=== PATIENT | female | born 1955 | race Caucasian/White ===

== ENCOUNTER 2016-09-04 16:13 | Observation (INO) | payer OTHER ==
[~2016-09-04] VITALS: Ht 162.6 cm; Wt 85.1 kg
[~2016-09-04 16:13] MED LIST: B-COTAB18 PO; CHOL1TAB42 PO; CLR10 PO; COEN1CAP37 PO; Calcium Citrate PO; GLIM2TAB2 PO; LPT/20 PO; METF-384 PO
[2016-09-04] MEDS ORDERED: ASPIRIN 324 MG CHEW PO STA (16:34)
[2016-09-04 16:50] LABS: BASO % 0.2 %; BASO ABS # 0.02 K/uL (0-0.2); COMPLETE YES; EOS % 2.2 %; IG% 0.2 %; MEAN CELL VOLUME 87.3 fL (80-100); MEAN CORPUSCULAR HGB CONC 34.3 g/dl (32-36); MEAN PLATELET VOLUME 10.1 fL (7.4-10.4); MONO % 6.8 %; NEUT % 51.6 %; PLATELET COUNT 307 K/uL (130-400); RED BLOOD COUNT 5.04 M/uL (4.2-5.4); WHITE BLOOD COUNT 8.72 K/uL (4.8-10.8)
--- NOTE | 2016-09-04 17:05 | DIAGNOSTIC IMAGING REPORT ---
CHEST ONE VIEW PORTABLE CLINICAL HISTORY: Chest pain. COMPARISON STUDY: Chest radiograph July 29, 2011. FINDINGS: Lung volumes are normal. There is no consolidation or evidence of pulmonary edema. Cardiac size is normal. Mediastinal contours are normal. The appearance of the chest is unchanged. IMPRESSION: No acute cardiopulmonary findings. Electronically signed by: Rolando Cr M.D. 09/04/2016 5:03 PM Dictated Date/Time: 09/04/2016 5:03 PM
[2016-09-04] MEDS ORDERED: GLIM4TAB2 PO (17:11)
[2016-09-04 17:40] LABS: PARTIAL THROMBOPLASTIN RATIO 1.1; PROTHROMBIN TIME (PATIENT) 10.4 SECONDS (9.0-12.0)
[2016-09-04 17:43] LABS: BLOOD UREA NITROGEN 12 mg/dl (7-18); BUN/CREATININE RATIO 15.8 (10-20); CALCIUM 9.5 mg/dl (8.5-10.1); CARBON DIOXIDE 25 mmol/L (21-32); CHLORIDE 101 mmol/L (98-107); CREATININE 0.78 mg/dl (0.60-1.20); GLUCOSE 284 mg/dl (70-99); SODIUM 137 mmol/L (136-145)
[2016-09-04] MEDS ORDERED: NITROGLYCERIN OINT 2% 1GM PACKET EXT ONE (18:15)
[2016-09-04] MEDS ORDERED: ONDANSETRON INJ 2 MG/ML 2 ML VIAL IV PRN (19:30)
[2016-09-04] MEDS ORDERED: GLUCOSE 10 TABS/TUBE PO PRN (19:30)
[2016-09-04] MEDS ORDERED: GLUCAGON FOR INJ 1 MG VIAL SQ PRN (19:30)
[2016-09-04] MEDS ORDERED: ACETAMINOPHEN 325 MG TAB PO PRN (19:30)
[2016-09-04] MEDS ORDERED: DEXTROSE 50% 50 ML SYR IV PRN (19:30)
[2016-09-04] MEDS ORDERED: GLUCOSE 40% GEL 15 GM TUBE PO PRN (19:30)
[2016-09-04] MEDS ORDERED: IV FLUIDS COMPLETED PRN (20:15)
[2016-09-04 20:30] VITALS: BP 152/83; PULSE 71; TEMP 36.6; O2SAT 96; Ht 162.6 cm; Wt 85.1 kg
--- NOTE | 2016-09-04 20:30 | History and Physical ---
History & Physical Date & Time of Service: Sep 04, 2016 at 19:23 Chief Complaint: Chest Discomfort Primary Care Physician: Traci Arzate M.D. History of Present Illness Source: patient, spouse ( at bedside), clinic records, hospital records This is a 60 year old female with PMH of DM type 2 on oral meds, uncontrolled in the past, hyperlipidemia, bicuspid aortic valve, severe aortic stenosis, history of Guillain-Yelm syndrome at age 22, who presented to the ED with intermittent chest pain. Patient follows with Dr. Arzate for primary care and Dr. Collins for cardiology. Patient states yesterday and today she has intermittent chest vague discomfort lasting 10 minutes which is now resolved. She describes discomfort as "it doesn't feel right". It occurred today while sitting watching a movie. Not related to exertion. No associated diaphoresis, dizziness, IVEY, vision change, SOB, OJEDA, N/V, reflux, palpitations, calf pain, edema, numbness or weakness of extremities. Patient reports being very anxious lately due to her father being recently hospitalized here at [facility] and underwent 2 coronary artery stents. He is now discharged to home. Patient's blood pressure is elevated up to 190s/110s in the ER. She denies prior history of HTN or being on BP medications. Last time her BP was taken was in clinic in June - at that time BP was 138/82. Pt states blood sugars run 150-250 at home. Patient refused aspirin in the ER- states she was told not to take it at [place] when she had Guillain-Yelm syndrome at age 22. She states she does not tolerate medications well. When I entered the room she was having nitro- paste placed, stated she was concerned it would cause a reaction. I informed her it may cause a headache and it was being given to dilate her blood vessels to improve perfusion to her heart and decrease the blood pressure. Immediately when nitro was placed patient became tearful and stated her lips were tingling, her nose "feels weird", her face was burning, and she felt she was "getting too much air". I removed the nitro paste and she reported resolution of symptoms. She states she had similar reactions in the past with Tylenol and ibuprofen. Patient declines medication for anxiety and also declines antihypertensive medication. Past Medical/Surgical History Medical Problems: (1) Aortic valve stenosis Permanent Comment: echo 06/15/2016- EF 60-64%, bicuspid aortic valve, moderately calcified aortic valve, severe Status: Chronic (2) Bicuspid aortic valve Status: Chronic (3) DM type 2 (diabetes mellitus, type 2) Status: Chronic (4) Guillain-Yelm syndrome Permanent Comment: age 22 Status: Chronic (5) Hyperlipidemia Status: Chronic (6) Obesity (BMI 30-39.9) Status: Chronic Surgical Problems: (1) H/O tubal ligation Status: Chronic Family History Heart disease FATHER (2 coronary artery stents) Social History Smoking Status: Never Smoker Alcohol Use: none Marital Status: Housing status: lives with family Occupational Status: employed Immunizations History of Influenza Vaccine: No History of Tetanus Vaccine?: Unknown History of Pneumococcal: No History of Hepatitis B Vaccine: No Allergies Coded Allergies: Lisinopril (Verified Allergy, Unknown, Edema face, lips, tongue., 09/04/16) Reported by PT/[facility] record. Home Medications Scheduled Atorvastatin (Atorvastatin Calcium), 20 MG PO HS B-Complex Vitamins (Vitamin B Complex), 1 TAB PO DAILY Cholecalciferol (Vitamin D), 5,000 INTER.UNIT PO DAILY Coenzyme Q10 (Ubidecarenone) (Co Q-10), 200 MG PO DAILY Glimepiride (Glimepiride), 1 TAB PO BID Loratadine (Claritin), 10 MG PO DAILY Metformin Hcl (Glucophage), 1,000 MG PO BID [Calcium Citrate], 1 CAP PO DAILY Review of Systems Ten point review of systems performed with pertinent positives and negatives noted in HPI. Physical Exam Vital Signs Date Time Temp Pulse Resp B/P Pulse Ox O2 Delivery O2 Flow Rate FiO2 09/04/16 19:21 85 20 190/105 95 Room Air 09/04/16 18:17 90 20 192/115 97 Room Air 09/04/16 16:26 92 09/04/16 16:25 98 Room Air 09/04/16 16:21 98 Room Air 09/04/16 16:20 98 Room Air 09/04/16 16:16 36.7 91 18 189/74 97 Room Air General Appearance: + obese, + pertinent finding (anxious, tearful multiple times) Head: normocephalic, atraumatic Eyes: normal inspection, PERRL, EOMI, sclerae normal ENT: hearing grossly normal, pharynx normal Neck: supple, no JVD, trachea midline Respiratory/Chest: lungs clear, normal breath sounds, no respiratory distress Cardiovascular: regular rate, rhythm (with occasional premature beat), normal peripheral pulses, + systolic murmur, + pertinent finding Abdomen/GI: normal bowel sounds, non tender, soft Extremities/Musculoskelatal: normal inspection, no calf tenderness, no pedal edema Neurologic/Psych: alert, normal mood/affect, oriented x 3, + pertinent finding (anxious, tearful multiple times. grossly nonfocal. speech is clear. no facial drooping. ) Skin: normal color, warm/dry Diagnostics Laboratory Results Results Past 24 Hours Test 09/04/16 16:25 09/04/16 16:41 09/04/16 17:09 09/04/16 17:42 Range/Units White Blood Count 8.72 4.8-10.8 K/uL Red Blood Count 5.04 4.2-5.4 M/uL Hemoglobin 15.1 12.0-16.0 g/dL Hematocrit 44.0 37-47 % Mean Corpuscular Volume 87.3 80-100 fL Mean Corpuscular Hemoglobin 30.0 25-34 pg Mean Corpuscular Hemoglobin Concent 34.3 32-36 g/dl Platelet Count 307 130-400 K/uL Mean Platelet Volume 10.1 7.4-10.4 fL Neutrophils (%) (Auto) 51.6 % Lymphocytes (%) (Auto) 39.0 % Monocytes (%) (Auto) 6.8 % Eosinophils (%) (Auto) 2.2 % Basophils (%) (Auto) 0.2 % Neutrophils # (Auto) 4.50 1.4-6.5 K/uL Lymphocytes # (Auto) 3.40 1.2-3.4 K/uL Monocytes # (Auto) 0.59 0.11-0.59 K/uL Eosinophils # (Auto) 0.19 0-0.5 K/uL Basophils # (Auto) 0.02 0-0.2 K/uL RDW Standard Deviation 41.8 36.4-46.3 fL RDW Coefficient of Variation 13.0 11.5-14.5 % Immature Granulocyte % (Auto) 0.2 % Immature Granulocyte # (Auto) 0.02 0.00-0.02 K/uL Sodium Level 137 136-145 mmol/L Potassium Level 3.8 3.5-5.1 mmol/L Chloride Level 101 98-107 mmol/L Carbon Dioxide Level 25 21-32 mmol/L Anion Gap 11.0 3-11 mmol/L Blood Urea Nitrogen 12 7-18 mg/dl Creatinine 0.78 0.60-1.20 mg/dl Est Creatinine Clear Calc Drug Dose 86.1 ml/min Estimated GFR () 97.1 Estimated GFR (Non- 83.8 BUN/Creatinine Ratio 15.8 10-20 Random Glucose 284 70-99 mg/dl Calcium Level 9.5 8.5-10.1 mg/dl Chemistry Specimen Hemolysis Bedside Troponin I 0.010 0-0.045 ng/ml Prothrombin Time 10.4 9.0-12.0 SECONDS Prothromb Time International Ratio 1.0 0.9-1.1 Activated Partial Thromboplast Time 28.5 21.0-31.0 SECONDS Partial Thromboplastin Ratio 1.1 Diagnostic Radiology CHEST ONE VIEW PORTABLE CLINICAL HISTORY: Chest pain. COMPARISON STUDY: Chest radiograph July 29, 2011. FINDINGS: Lung volumes are normal. There is no consolidation or evidence of pulmonary edema. Cardiac size is normal. Mediastinal contours are normal. The appearance of the chest is unchanged. IMPRESSION: No acute cardiopulmonary findings. EKG sinus rhythm with frequent PVC, possible left atrial enlargement, LAD, nonspecific T wave inversion in lead III- also present on prior EKG, no ST abnormalities Impression Assessment and Plan CHEST PAIN Rule out ACS- risk factors include DM, HL, obesity, + family history May be due to hypertensive urgency and anxiety Has underlying bicuspid AV and severe aortic stenosis; echo 06/15/2016- EF 60-64 %, bicuspid aortic valve, moderately calcified aortic valve, severe CXR- unremarkable Initial troponin negative EKG shows sinus rhythm with frequent PVC, nonspecific T wave abnormality in III - also present on prior EKG, no ST change Refused aspirin in ER Did not tolerate nitro paste Trend serial cardiac enzymes Check repeat EKG in am NPO after midnight; ordered stress echo tomorrow am Consult cardiology HYPERTENSIVE URGENCY BP elevated to 190s/110s in ER; noted to be very anxious on exam Denies hx of HTN; not on medication at home Patient refuses antihypertensive medication ANXIETY Anxious and tearful on exam Likely exacerbated by her father's recent hospitalization/ stenting Patient refuses anxiety medication SEVERE AORTIC STENOSIS Echo 06/15/2016- EF 60-64%, bicuspid aortic valve, moderately calcified aortic valve, severe Per Dr. Collins's last clinic note, worsened on recent echo, but surgery was not yet necessary as she was asymptomatic DM TYPE 2 Uncontrolled; last A1c in was 10 Random glucose is 284 in ER Hold metformin and glimepiride Insulin sliding scale coverage Consult pharmacy for glycemic control Diabetes education consult Check A1c in am HYPERLIPIDEMIA Continue statin DVT PROPHYLAXIS SCD's DISPOSITION Follows with Dr. Arzate for primary care and Dr. Collins for cardiology. Patient seen in collaboration with Dr. Ambrosio. Please see his addendum. Attending Note: Patient is a 60 yr old female with PMH of DM II, GB syndrome, HLP, Bicuspid aortic stenosis and severe aortic stenosis presents for evaluation of chest pain. Patient describes the chest pain as vague discomfort, intermittent, non radiating, retrosternal in location, no aggravating/relieving factors which lasts for few minutes. No associated symptoms noted. Patient is anxious lately secondary to her father being hospitalized for CAD. She was found to have hypertensive urgency and has uncontrolled blood sugar levels. Refuses to be treated for high BP and refused Aspirin and denoted to being very sensitive to medications secondary to GB syndrome. Currently BP decreased to 150s SBP without any intervention. Physical Exam: Vitals signs as noted above General Appearance:Moderately built and nourished, no apparent distress Head: normocephalic, Atraumatic Eyes: normal inspection, EOMI, PERRLA, Anicteric Neck: supple, Trachea midline, No JVD Respiratory/Chest: Normal Vesicular breath sounds, CTA, No accessory muscle use Cardiovascular: S1, S2, NSR, + systolic murmur Abdomen/GI:Soft, Non tender, Bowel sounds present, No guarding/rigidity/ organomegaly Extremities/Musculoskeletal:normal inspection, no calf tenderness, cyanosis, clubbing, edema Neurologic/Psych:AAOX3, grossly no focal neurological deficits Skin: normal color, warm Assessment and Plan: Atypical chest pain: R/O ACS Likely secondary to anxiety and uncontrolled BP Patient has bicuspid AV and severe aortic stenosis CXR:WNL, EKG:PVCs noted, non specific T wave changes, Initial Troponin wnl Refused aspirin, continue Lipitor Trend cardiac enzymes, repeat EKG in AM Stress ECHO, NPO after midnight Cardiology consult Refuses to be treated for Hypertensive Urgency. Currently BP improved without any intervention Agree with assessment and plan of Clair Aparicio PA-C as above VTE Prophylaxis VTE Risk Assessment Done? Y/N: Yes Risk Level: Moderate
[2016-09-04] MEDS ORDERED: PHARMACY GLYCEMIC MGMT CONSULT PRN (21:30)
[2016-09-04] MEDS: INSULIN ASPART 100 UNITS/ML 3 ML PEN SC SCH (21:42)
[2016-09-04] MEDS: ATORVASTATIN 20 MG TAB PO SCH (22:14)
--- NOTE | 2016-09-04 23:26 | EMERGENCY ROOM VISIT NOTE ---
History Report prepared by Brenda: Amna Lopez Under the Supervision of: Dr. Peyman Gunter M.D. First contact with patient: 16:20 Chief Complaint: CHEST PAIN Stated Complaint: CHEST DISCOMFORT History of Present Illness The patient is a 60 year old female who presents to the Emergency Room with complaints of intermittent chest discomfort that began yesterday. She describes the discomfort as a pressure sensation that will last for about 10 minutes in the middle of her chest. The patient has been experiencing belching episodes today. She is a diabetic and has an aortic bicuspid valve. Her father has heart disease and recently had a stent. The patient denies shortness of breath, swelling to her lower extremities, heart issues, diaphoresis, or smoking, She states that her blood pressure normally goes up when she comes to the hospital. She is not treated for hypertension. Source of History: patient Onset: yesterday Position: chest Quality: pressure Timing: intermittent Associated Symptoms: No SOB, No diaphoresis Note: Patient has been experiencing belching episodes. She denies swelling to lower extremities. Review of Systems See HPI for pertinent positives & negatives. A total of 10 systems reviewed and were otherwise negative. Past Medical & Surgical Medical Problems: (1) Aortic valve stenosis (2) Bicuspid aortic valve (3) Calculus Of Ureter (4) Chest pain (5) Geo Aorta Valv Insuffic (6) Diab Kaylah Wo Compl, Type Ii Or Unspec Type, Not Uncntrld (7) DM type 2 (diabetes mellitus, type 2) (8) Guillain-Comptche syndrome (9) Hyperlipidemia (10) Hyperlipidemia Nec/Nos (11) Hypertension Nos (12) Hypertensive urgency (13) Obesity (BMI 30-39.9) Surgical Problems: (1) H/O tubal ligation Family History Heart disease Social History Smoking Status: Never Smoker Alcohol Use: none Drug Use: none Marital Status: Occupation Status: employed Current/Historical Medications Scheduled Atorvastatin (Atorvastatin Calcium), 20 MG PO HS B-Complex Vitamins (Vitamin B Complex), 1 TAB PO DAILY Cholecalciferol (Vitamin D), 5,000 INTER.UNIT PO DAILY Coenzyme Q10 (Ubidecarenone) (Co Q-10), 200 MG PO DAILY Glimepiride (Glimepiride), 1 TAB PO BID Loratadine (Claritin), 10 MG PO DAILY Metformin Hcl (Glucophage), 1,000 MG PO BID [Calcium Citrate], 1 CAP PO DAILY Allergies Coded Allergies: Lisinopril (Verified Allergy, Unknown, Edema face, lips, tongue., 09/04/16) Reported by PT/[facility]G record. Physical Exam Vital Signs Date Time Temp Pulse Resp B/P Pulse Ox O2 Delivery O2 Flow Rate FiO2 09/04/16 18:17 90 20 192/115 97 Room Air 09/04/16 16:26 92 09/04/16 16:25 98 Room Air 09/04/16 16:21 98 Room Air 09/04/16 16:20 98 Room Air 09/04/16 16:16 36.7 91 18 189/74 97 Room Air Physical Exam Constitutional: Vital signs reviewed. Eyes: Pupils are equal round reactive to light. Conjunctiva are noninjected. ENT: Pharynx is clear without erythema or exudate. Mucous membranes are moist. Neck supple without meningeal signs. Respiratory: Clear to auscultation bilaterally. Breath sounds are equal bilaterally. Cardiovascular: Regular rate and rhythm. No rubs or gallops. GI: Soft, nondistended and nontender. Bowel sounds are present. Musculoskeletal: No peripheral edema. No lower extremity tenderness. Integumentary: No cyanosis. Neurological: The patient is awake and alert. No focal deficits. Psychiatric: Normal affect. Medical Decision & Procedures ER Provider Diagnostic Interpretation: X-ray results as stated below per interpretation by me and the radiologist: CHEST ONE VIEW PORTABLE CLINICAL HISTORY: Chest pain. COMPARISON STUDY: Chest radiograph July 29, 2011. FINDINGS: Lung volumes are normal. There is no consolidation or evidence of pulmonary edema. Cardiac size is normal. Mediastinal contours are normal. The appearance of the chest is unchanged. IMPRESSION: No acute cardiopulmonary findings. Electronically signed by: Rolando Cr M.D. 09/04/2016 5:03 PM Dictated Date/Time: 09/04/2016 5:03 PM Laboratory Results 09/04/16 16:25 Red Blood Count 5.04, Mean Corpuscular Volume 87.3, Mean Corpuscular Hemoglobin 30.0, Mean Corpuscular Hemoglobin Concent 34.3, Mean Platelet Volume 10.1, Neutrophils (%) (Auto) 51.6, Lymphocytes (%) (Auto) 39.0, Monocytes (%) (Auto) 6.8, Eosinophils (%) (Auto) 2.2, Basophils (%) (Auto) 0.2, Neutrophils # (Auto) 4.50, Lymphocytes # (Auto) 3.40, Monocytes # (Auto) 0.59, Eosinophils # (Auto) 0.19, Basophils # (Auto) 0.02 09/04/16 16:25 09/04/16 17:42 Test 09/04/16 16:25 09/04/16 16:41 09/04/16 17:09 White Blood Count 8.72 K/uL (4.8-10.8) Red Blood Count 5.04 M/uL (4.2-5.4) Hemoglobin 15.1 g/dL (12.0-16.0) Hematocrit 44.0 % (37-47) Mean Corpuscular Volume 87.3 fL (80-100) Mean Corpuscular Hemoglobin 30.0 pg (25-34) Mean Corpuscular Hemoglobin Concent 34.3 g/dl (32-36) Platelet Count 307 K/uL (130-400) Mean Platelet Volume 10.1 fL (7.4-10.4) Neutrophils (%) (Auto) 51.6 % Lymphocytes (%) (Auto) 39.0 % Monocytes (%) (Auto) 6.8 % Eosinophils (%) (Auto) 2.2 % Basophils (%) (Auto) 0.2 % Neutrophils # (Auto) 4.50 K/uL (1.4-6.5) Lymphocytes # (Auto) 3.40 K/uL (1.2-3.4) Monocytes # (Auto) 0.59 K/uL (0.11-0.59) Eosinophils # (Auto) 0.19 K/uL (0-0.5) Basophils # (Auto) 0.02 K/uL (0-0.2) RDW Standard Deviation 41.8 fL (36.4-46.3) RDW Coefficient of Variation 13.0 % (11.5-14.5) Immature Granulocyte % (Auto) 0.2 % Immature Granulocyte # (Auto) 0.02 K/uL (0.00-0.02) Anion Gap 11.0 mmol/L (3-11) Est Creatinine Clear Calc Drug Dose 86.1 ml/min Estimated GFR () 97.1 Estimated GFR (Non- 83.8 BUN/Creatinine Ratio 15.8 (10-20) Calcium Level 9.5 mg/dl (8.5-10.1) Chemistry Specimen Hemolysis Hepatitis C Antibody Screen NEG (NEG) Bedside Troponin I 0.010 ng/ml (0-0.045) Prothrombin Time 10.4 SECONDS (9.0-12.0) Prothromb Time International Ratio 1.0 (0.9-1.1) Activated Partial Thromboplast Time 28.5 SECONDS (21.0-31.0) Partial Thromboplastin Ratio 1.1 Laboratory results as reviewed by me. Medications Administered Medications (Trade) Dose Ordered Sig/Jah Route Start Time Stop Time Status Last Admin Dose Admin Nitroglycerin (Nitroglycerin 2% Oint) 0.5 inch NOW ONCE EXT 09/04/16 18:15 09/04/16 19:16 DC 09/04/16 18:37 0.5 INCH ECG Indication: chest pain Rate (beats per minute): 88 Rhythm: sinus rhythm Findings: PVC, no acute ischemic change ED Course 162: The patient was evaluated in room A3. A complete history and physical exam was performed. 1634: Aspirin Chew 324 mg PO. 180: I reevaluated the patient. She has no chest discomfort at this time. Her blood pressure is 192/115. She refused Aspirin. She does agree to hospitalization. 181: I spoke with EDVIN Marcos of [facility]. We discussed the patient and her results. The patient will be further evaluated by EDVIN Marcos. 181: Nitroglycerin 2% Oint 0.5 inch EXT. Medical Decision This is a 60-year-old female presents with chest discomfort. Differential diagnosis includes unstable angina, VT, GERD, pleurisy, pneumonia. I did perform a limited focused review of portions of the patient's old chart on the electronic medical record. The patient has had no recent pertinent visits to this hospital. I did evaluate the patient as noted above. She is presenting with intermittent chest pressure since yesterday. She does have a history of diabetes and a family history of cardiac disease. She is currently not having any chest pain. She refused aspirin because of her Guillain-Hector. IV access was established. The patient was placed on a continuous bottle and glass inspector. Her blood pressure is elevated but she stated that her blood pressure elevates when she goes to the hospital. She is also very stressed. I did order and personally review the patient's 12-lead EKG and chest x-ray as described above. I did order and review the patient's blood work as noted in the electronic medical record. Troponin is negative. I did reassess the patient. She continues to denying chest discomfort at this time. She does have an increase in her blood pressure and so I did feel treatment was prudent. I did discuss nitroglycerin with her. She was given Nitropaste 0.5 inch to the anterior chest wall. I did recommend hospitalization for repeat cardiac enzymes and further evaluation. I did discuss the case with the hospitalist and case management assistant. Consults Time Called: [id number] Consulting Physician: Clair PARDO Returned Call: [phone] I spoke with EDVIN Marcos of [facility]. We discussed the patient and her results. The patient will be further evaluated by EDVIN Marcos. Impression Primary Impression: Acute chest pain Additional Impression: Elevated blood pressure reading Scribe Attestation The scribe's documentation has been prepared under my direct and personally reviewed by me in its entirety. I confirm that the note above accurately reflects all work, treatment, procedures, and medical decision making performed by me. Departure Information Dispostion Being Evaluated By Hospitalist Traci Araujo M.D. (PCP) Problem Qualifiers
[2016-09-04 23:42] VITALS: BP 147/85; PULSE 72; TEMP 36.6; O2SAT 97
[2016-09-05] VITALS (8 sets, daily range): BP systolic 99–145; BP diastolic 62–81; PULSE 60–82; TEMP 36.4–36.8; O2SAT 95–97
[2016-09-05 06:33] LABS: BASO % 0.6 %; BASO ABS # 0.04 K/uL (0-0.2); COMPLETE YES; EOS % 1.9 %; HEMATOCRIT 42.4 % (37-47); IG% 0.1 %; LYMPH % 45.8 %; LYMPH ABS # 3.18 K/uL (1.2-3.4); MEAN CORPUSCULAR HEMOGLOBIN 30.5 pg (25-34); MEAN CORPUSCULAR HGB CONC 34.7 g/dl (32-36); MEAN PLATELET VOLUME 10.5 fL (7.4-10.4); MONO % 6.9 %; NEUT % 44.7 %; PLATELET COUNT 263 K/uL (130-400); RED BLOOD COUNT 4.82 M/uL (4.2-5.4); WHITE BLOOD COUNT 6.95 K/uL (4.8-10.8)
[2016-09-05 07:09] LABS: BLOOD UREA NITROGEN 15 mg/dl (7-18); BUN/CREATININE RATIO 21.1 (10-20); CALCIUM 9.1 mg/dl (8.5-10.1); CARBON DIOXIDE 25 mmol/L (21-32); CHLORIDE 104 mmol/L (98-107); CREATININE 0.71 mg/dl (0.60-1.20); GLUCOSE 231 mg/dl (70-99); POTASSIUM 3.6 mmol/L (3.5-5.1); SODIUM 140 mmol/L (136-145)
[2016-09-05] MEDS ORDERED: LANTUS PER UNIT CHARGE SQ ONE (08:00)
[2016-09-05] MEDS: VITAMIN B COMPLEX TAB PO SCH (08:59)
[2016-09-05] MEDS: CALCIUM CARBONATE 1250MG TAB PO SCH (08:59)
[2016-09-05] MEDS: CHOLECALCIFEROL 1000 INTER.UNIT TAB PO SCH (08:59)
[2016-09-05] MEDS ORDERED: LORATADINE 10 MG TAB PO SCH (09:00)
[2016-09-05] MEDS ORDERED: NON-FORMULARY MEDICATION (Coenzyme Q10 (Ubidecarenone) (Co Q-10) 200 MG) PO SCH (09:00)
[2016-09-05] MEDS: INSULIN ASPART 100 UNITS/ML 3 ML PEN SC SCH ×4 (09:07→20:44)
[2016-09-05] MEDS ORDERED: METOPROLOL SUCC 25MG EXT REL TAB PO ONE (11:00)
--- NOTE | 2016-09-05 12:05 | Progress Note ---
Medicine Progress Note Date & Time of Visit: Sep 05, 2016 at 12:02. Subjective seen resting in bed, comfortable denies chest pain, headache, dizziness, nausea, palpitations no problems ambulating denies other symptoms Objective Last 8 Hrs Date Time Temp Pulse Resp B/P Pulse Ox O2 Delivery O2 Flow Rate FiO2 09/05/16 11:51 36.5 77 16 124/81 95 Room Air 09/05/16 08:02 36.5 71 18 139/79 97 Room Air 09/05/16 08:00 Room Air Physical Exam: General- oriented x 3, not in distress, speaks in sentences with no effort Eyes- EOMI, anicteric ENT- oropharynx clear Neck- supple, no JVD, no adenopathy Lungs- clear to auscultation bilaterally Heart- normal rate, regular rhythm; (+) grade 2-3/6 murmur Abdomen- normal bowel sounds, soft, nontender\ Extremities- no pretibial edema, no calf tenderness Neuro- alert, oriented x 3; no gross focal deficits Skin- warm & dry Laboratory Results: Last 24 Hours Test 09/04/16 16:25 09/04/16 16:41 09/04/16 17:09 09/04/16 17:42 White Blood Count 8.72 K/uL Red Blood Count 5.04 M/uL Hemoglobin 15.1 g/dL Hematocrit 44.0 % Mean Corpuscular Volume 87.3 fL Mean Corpuscular Hemoglobin 30.0 pg Mean Corpuscular Hemoglobin Concent 34.3 g/dl Platelet Count 307 K/uL Mean Platelet Volume 10.1 fL Neutrophils (%) (Auto) 51.6 % Lymphocytes (%) (Auto) 39.0 % Monocytes (%) (Auto) 6.8 % Eosinophils (%) (Auto) 2.2 % Basophils (%) (Auto) 0.2 % Neutrophils # (Auto) 4.50 K/uL Lymphocytes # (Auto) 3.40 K/uL Monocytes # (Auto) 0.59 K/uL Eosinophils # (Auto) 0.19 K/uL Basophils # (Auto) 0.02 K/uL RDW Standard Deviation 41.8 fL RDW Coefficient of Variation 13.0 % Immature Granulocyte % (Auto) 0.2 % Immature Granulocyte # (Auto) 0.02 K/uL Sodium Level 137 mmol/L Potassium Level mmol/L 3.8 mmol/L Chloride Level 101 mmol/L Carbon Dioxide Level 25 mmol/L Anion Gap 11.0 mmol/L Blood Urea Nitrogen 12 mg/dl Creatinine 0.78 mg/dl Est Creatinine Clear Calc Drug Dose 86.1 ml/min Estimated GFR () 97.1 Estimated GFR (Non- 83.8 BUN/Creatinine Ratio 15.8 Random Glucose 284 mg/dl Calcium Level 9.5 mg/dl Chemistry Specimen Hemolysis Hepatitis C Antibody Screen NEG Bedside Troponin I 0.010 ng/ml Prothrombin Time 10.4 SECONDS Prothromb Time International Ratio 1.0 Activated Partial Thromboplast Time 28.5 SECONDS Partial Thromboplastin Ratio 1.1 Test 09/04/16 22:33 09/05/16 05:20 09/05/16 05:50 09/05/16 06:42 Total Creatine Kinase 55 U/L 59 U/L Creatine Kinase MB < 0.5 ng/ml < 0.5 ng/ml Creatine Kinase MB Ratio Troponin I < 0.015 ng/ml < 0.015 ng/ml White Blood Count 6.95 K/uL Red Blood Count 4.82 M/uL Hemoglobin 14.7 g/dL Hematocrit 42.4 % Mean Corpuscular Volume 88.0 fL Mean Corpuscular Hemoglobin 30.5 pg Mean Corpuscular Hemoglobin Concent 34.7 g/dl Platelet Count 263 K/uL Mean Platelet Volume 10.5 fL Neutrophils (%) (Auto) 44.7 % Lymphocytes (%) (Auto) 45.8 % Monocytes (%) (Auto) 6.9 % Eosinophils (%) (Auto) 1.9 % Basophils (%) (Auto) 0.6 % Neutrophils # (Auto) 3.11 K/uL Lymphocytes # (Auto) 3.18 K/uL Monocytes # (Auto) 0.48 K/uL Eosinophils # (Auto) 0.13 K/uL Basophils # (Auto) 0.04 K/uL RDW Standard Deviation 42.2 fL RDW Coefficient of Variation 13.1 % Immature Granulocyte % (Auto) 0.1 % Immature Granulocyte # (Auto) 0.01 K/uL Hepatitis C Antibody NEG Sodium Level 140 mmol/L Potassium Level 3.6 mmol/L Chloride Level 104 mmol/L Carbon Dioxide Level 25 mmol/L Anion Gap 11.0 mmol/L Blood Urea Nitrogen 15 mg/dl Creatinine 0.71 mg/dl Est Creatinine Clear Calc Drug Dose 91.2 ml/min Estimated GFR () 108.8 Estimated GFR (Non- 93.9 BUN/Creatinine Ratio 21.1 Random Glucose 231 mg/dl Calcium Level 9.1 mg/dl Bedside Glucose 231 mg/dl Test 09/05/16 11:18 Bedside Glucose 248 mg/dl Assessment & Plan 60 year old female with history of DM, HLD, Bicuspid Aortic Valve, Severe Aortic Stenosis, and other problems noted below presenting with chest discomfort. CHEST DISCOMFORT - LIKELY FROM HYPERTENSIVE URGENCY - cardiac markers negative ekg: non specific changes in inferior and septal leads echo pending - BP improved with no medications - evaluated by Dr. Fermin Metoprolol 12.5mg daily started - monitor BP ff up echo SEVERE AORTIC STENOSIS Echo 06/15/2016- EF 60-64%, bicuspid aortic valve, moderately calcified aortic valve, severe - Cardiology consulted DM TYPE 2 Hold metformin and glimepiride A1c pending Insulin sliding scale coverage consulted Pharmacy HYPERLIPIDEMIA Continue statin ANXIETY - patient declines medications DVT PROPHYLAXIS SCD's DISPOSITION Follows with Dr. Arzate for primary care and Dr. Collins for cardiology. management of above in progress Current Inpatient Medications: Current Inpatient Medications Medications (Trade) Dose Ordered Sig/Jah Route Start Time Stop Time Status Last Admin Dose Admin Ondansetron HCl (Zofran Inj) 4 mg Q6H PRN IV 09/04/16 19:30 10/04/16 19:29 Insulin Aspart (novoLOG ASPART) SLIDING SCALE If C... ACHS SC 09/04/16 21:45 10/04/16 21:44 09/05/16 09:07 3 UNITS Glucose (Glucose 40% Gel) 15-30 GRAMS 15 GRAMS... UD PRN PO 09/04/16 19:30 10/04/16 19:29 Glucose (Glucose Chew Tab) 4-8 Tablets 4 Tabl... UD PRN PO 09/04/16 19:30 10/04/16 19:29 Dextrose (Dextrose 50% 50ML Syringe) 25-50ML OF 50% DW IV FOR... UD PRN IV 09/04/16 19:30 10/04/16 19:29 Glucagon (Glucagon Inj) 1 mg UD PRN SQ 09/04/16 19:30 10/04/16 19:29 Atorvastatin Calcium (Lipitor Tab) 20 mg HS PO 09/04/16 21:45 10/04/16 21:44 09/04/16 22:14 20 MG Loratadine (Claritin Tab) 10 mg DAILY PO 09/05/16 09:00 10/05/16 08:59 09/05/16 08:59 10 MG Vitamin B Complex (Vitamin B Complex) 1 tab DAILY PO 09/05/16 09:00 10/05/16 08:59 09/05/16 08:59 1 TAB Cholecalciferol (Vitamin D Tab) 1,000 inter.unit DAILY PO 09/05/16 09:00 10/05/16 08:59 09/05/16 08:59 1,000 INTER.UNIT Calcium Carbonate (oS-Luis 500 TAB) 1 mg DAILY PO 09/05/16 09:00 10/05/16 08:59 09/05/16 08:59 1,250 MG Miscellaneous (Iv Fluids Completed) 1 ea PRN PRN N/A 09/04/16 20:15 09/04/17 20:14 Miscellaneous Information (Consult Glycemic Management Pharmacy) 1 ea UD PRN N/A 09/04/16 21:30 10/04/16 21:29 Metoprolol Succinate (Toprol Xl Tab) 12.5 mg QAM PO 09/06/16 09:00 10/05/16 08:59
[2016-09-05] MEDS ORDERED: POTASSIUM CHLORIDE 10 MEQ TABCR PO ONE (12:30)
--- NOTE | 2016-09-05 13:47 | Pharmacy Progress Note ---
Glycemic Control Intl Consult Date of Service Sep 05, 2016. Scope Glycemic Pharmacist consulted by Gypsy Aparicio PA-C on 09/04/16 for glycemic control and to write orders per [facility] inpatient glycemic control protocol Objective Weight (Kilograms): 85.100 Accuchecks BSG (last 24hrs): Test 09/04/16 16:25 09/05/16 05:50 09/05/16 06:42 09/05/16 11:18 Random Glucose 284 mg/dl (70-99) 231 mg/dl (70-99) Bedside Glucose 231 mg/dl (70-90) 248 mg/dl (70-90) Laboratory Data (last 24hrs) Test 09/04/16 16:25 09/04/16 17:42 09/05/16 05:20 09/05/16 05:50 Anion Gap 11.0 mmol/L 11.0 mmol/L BUN/Creatinine Ratio 15.8 21.1 Blood Urea Nitrogen 12 mg/dl 15 mg/dl Creatinine 0.78 mg/dl 0.71 mg/dl Potassium Level mmol/L 3.8 mmol/L 3.6 mmol/L Sodium Level 137 mmol/L 140 mmol/L White Blood Count 8.72 K/uL 6.95 K/uL Red Blood Count 5.04 M/uL 4.82 M/uL Hemoglobin 15.1 g/dL 14.7 g/dL Hematocrit 44.0 % 42.4 % Mean Corpuscular Volume 87.3 fL 88.0 fL Mean Corpuscular Hemoglobin 30.0 pg 30.5 pg Mean Corpuscular Hemoglobin Concent 34.3 g/dl 34.7 g/dl Platelet Count 307 K/uL 263 K/uL Mean Platelet Volume 10.1 fL 10.5 fL Neutrophils (%) (Auto) 51.6 % 44.7 % Lymphocytes (%) (Auto) 39.0 % 45.8 % Monocytes (%) (Auto) 6.8 % 6.9 % Eosinophils (%) (Auto) 2.2 % 1.9 % Basophils (%) (Auto) 0.2 % 0.6 % Neutrophils # (Auto) 4.50 K/uL 3.11 K/uL Lymphocytes # (Auto) 3.40 K/uL 3.18 K/uL Monocytes # (Auto) 0.59 K/uL 0.48 K/uL Eosinophils # (Auto) 0.19 K/uL 0.13 K/uL Basophils # (Auto) 0.02 K/uL 0.04 K/uL HbA1c Test 09/05/16 05:20 Recent Pertinent Medications Outpatient Anti-diabetic Regimen: * Metformin 1gm BIDM, Amaryl 4mg BID * A1c pending Risk Factors for Insulin Resistance: * Anxiety, HTN urgency * Diet: AHA/DM2 Assessment & Plan ASSESSMENT: * ADA & AACE recommend a goal blood sugar range 140-180 mg/dl for the majority of critically ill & non-critically ill patients. However, more stringent targets may be selected in individual cases. * 60 yo female admitted s/p hypertensive urgency with extensive cardiac history. * A1c pending from this morning still. Unable to discern level of BSG control as an outpatient on oral DM meds alone. Will place oral agents on hold. Will give consideration to resuming Metformin 1-2 days prior to discharge to aid in transition to home regimen. It is not recommended to continue oral DM meds in hospital setting d/t difficulty titrating, risk for drug interactions, and variability of acute illness. * BMI = 32 kg/m2 -- pt not likely highly insulin sensitive. * Will initiate DM regimen considering weight based dosing and adjust dosing according to response. PLAN FOR INPATIENT GLYCEMIC CONTROL: * Start Lantus 10 units BID, hold for BSG below 110 mg/dl * Novolog ACHS * Tighten correction factor to 25 mg/dl/unit * Tighten carb ratio to 1 unit per 10 grams CHO consumed * Set goal range to Low 110 mg/dL - High 150 mg/dL * Hold oral DM agents * Please note that the plan above was derived based on current level of insulin resistance and hospital stress. These recommendations are appropriate for inpatient admission only. Plan of care upon discharge will need to be reassessed to avoid potential outpatient hypo/hyperglycemia. Thank you.
--- NOTE | 2016-09-05 14:46 | ECHOCARDIOGRAM REPORT ---
*NOTICE TO RECEIVING CONSTITUTION PARTY AGENCY This information is strictly Confidential and protected under [place] law. [place] law prohibits you from making any further disclosure of this information unless further disclosure is expressly permitted by the written consent of the person to whom it pertains or is authorized by law. A general authorization for the release of medical or other information is not sufficient for this purpose. Hospital accepts no responsibility if the information is made available to any other person, INCLUDING THE PATIENT. Interpretation Summary * Name: JARVIS LOTT Study Date: 09/05/2016 12:07 PM BP: 124/81 mmHg * Patient Location: [facility] HR: 75 * : 1955 (M/d/yyyy) Gender: Female Height: 65 in * Age: 60 yrs Ethnicity: [place] Weight: 194 lb * Ordering Physician: Clair Aparicio PA-C * Performed By: Felicia Mclean RDCS * * Reason For Study: Chest pain * BSA: 2.0 m2 * -- Conclusions -- * The left ventricle is normal in size. * There is moderate concentric left ventricular hypertrophy. * The left ventricular wall motion is normal. * Ejection Fraction = 60-65%. * The aortic valve is bicuspid. * The aortic valve leaflets are thickened and moderately calcified. * Borderline severe aortic stenosis is present, ALFRED 1.0 cm2. * No aortic regurgitation is present. * The aortic root is normal size. Procedure Details * A complete two-dimensional transthoracic echocardiogram was performed (2D, M-mode, Doppler and color flow Doppler). Left Ventricle * The left ventricle is normal in size. * There is moderate concentric left ventricular hypertrophy. * Ejection Fraction = 60-65%. * Left ventricular systolic function is normal. * The left ventricular wall motion is normal. Right Ventricle * The right ventricle is normal in size and function. Atria * The left atrial size is normal. * Right atrial size is normal. * No ASD detected; PFO is not assessed. Mitral Valve * There is mild mitral annular calcification. * There is no mitral valve stenosis. * There is trace mitral regurgitation. Tricuspid Valve * The tricuspid valve anatomy is normal. * There is no tricuspid stenosis. * There is trace tricuspid regurgitation. Aortic Valve * The aortic valve is bicuspid. * The aortic valve leaflets are thickened and moderately calcified. * Borderline severe aortic stenosis is present, ALFRED 1.0 cm2. * No aortic regurgitation is present. Pulmonic Valve * The pulmonic valve is not well visualized. Great Vessels * The aortic root is normal size. Pericardium/Pleural * There is no pericardial effusion. Great Vessels * Normal inferior vena cava diameter and respiratory variation suggests normal central venous pressure. Left Ventricular Diastolic Function * Grade I diastolic dysfunction, (abnormal relaxation pattern). MMode 2D Measurements and Calculations IVSd 1.5 cm LVIDd 3.2 cm LVIDs 2.2 cm LVPWd 1.3 cm IVS/LVPW 1.1 FS 31.0 % EDV(Teich) 41.5 ml ESV(Teich) 16.6 ml EF(Teich) 60.1 % EDV(cubed) 33.3 ml ESV(cubed) 10.9 ml EF(cubed) 67.2 % LV mass(C)d 152.7 grams LV mass(C)dI 78.2 grams/m\S\2 CO(Teich) 1.9 l/min CI(Teich) 0.98 l/min/m\S\2 SV(Teich) 24.9 ml SI(Teich) 12.8 ml/m\S\2 CO(cubed) 1.7 l/min CI(cubed) 0.88 l/min/m\S\2 SV(cubed) 22.4 ml SI(cubed) 11.4 ml/m\S\2 LA dimension 2.8 cm asc Aorta Diam 2.9 cm LVOT diam 2.2 cm LVOT area 3.8 cm\S\2 LVAd ap4 23.2 cm\S\2 LVLd ap4 7.3 cm EDV(MOD-sp4) 60.5 ml LVAs ap4 12.8 cm\S\2 LVLs ap4 5.8 cm ESV(MOD-sp4) 23.6 ml EF(MOD-sp4) 61.0 % LVAd ap2 18.8 cm\S\2 LVLd ap2 7.1 cm EDV(MOD-sp2) 40.7 ml LVAs ap2 10.7 cm\S\2 LVLs ap2 6.1 cm ESV(MOD-sp2) 17.4 ml EF(MOD-sp2) 57.2 % CO(MOD-sp4) 2.8 l/min CI(MOD-sp4) 1.5 l/min/m\S\2 SV(MOD-sp4) 36.9 ml SI(MOD-sp4) 18.9 ml/m\S\2 CO(MOD-sp2) 1.8 l/min CI(MOD-sp2) 0.92 l/min/m\S\2 SV(MOD-sp2) 23.3 ml SI(MOD-sp2) 11.9 ml/m\S\2 Doppler Measurements and Calculations MV E max albert 71.8 cm/sec MV A max albert 98.0 cm/sec MV E/A 0.73 MV dec time 0.26 sec Ao V2 max 312.7 cm/sec Ao max PG 39.2 mmHg Ao max PG (full) 36.5 mmHg Ao V2 mean 227.6 cm/sec Ao mean PG 22.5 mmHg Ao V2 VTI 63.3 cm ALFRED(V,A) 1.0 cm\S\2 ALFRED(V,D) 1.0 cm\S\2 LV V1 max PG 2.7 mmHg LV V1 max 82.5 cm/sec PA V2 max 100.4 cm/sec PA max PG 4.0 mmHg PA acc slope 658.7 cm/sec\S\2 PA acc time 0.11 sec PI max albert 162.9 cm/sec PI max PG 10.6 mmHg PI dec slope 195.9 cm/sec\S\2 PI P1/2t 243.5 msec TR max albert 262.0 cm/sec PA pr(Accel) 28.3 mmHg
--- NOTE | 2016-09-05 18:21 | CARDIOLOGY CONSULTATION ---
DATE OF CONSULTATION: 09/05/2016 REFERRING: Clair Aparicio PA-C. PRIMARY DOCTOR: Dr. Jennings. PRIMARY CARE OUTPATIENT: Dr. Arzate. PRIMARY PACKING ROOM SUPERVISOR: Dr. Collins. HISTORY OF PRESENT ILLNESS: The patient is a 60-year-old female followed for history of congenitally bicuspid aortic valve with associated severe aortic stenosis, history of diabetes mellitus type 2 with poor control, past history of hyperlipidemia with poor tolerance of lipid lowering therapies, history of Guillain-Rolla at age 22. The patient is seen now after hospitalization the day prior, presenting to the Emergency Room with a sensation of fullness in the chest and just "not feeling right." On presentation to the Emergency Room, she was noted to be markedly hypertensive, blood pressure 190s/110s. She noted she has been under significant stress at home after father had been hospitalized for coronary artery disease the week prior. She denies fevers, chills, headaches, change in vision, smell, taste. Notes no melena, hematochezia, dysuria or hematuria. Notes no acute fevers, chills or sweats. Weight per patient has been stable but up. Notes no signs or symptoms of bleeding. Notes no acute neurologic decline. ALLERGIES: NOTED TO BE LISINOPRIL. MEDICATIONS PRIOR TO HOSPITALIZATION: Atorvastatin 20 mg p.o. q. day, vitamin B complex, cholecalciferol, coenzyme Q10, glimepiride 4 mg 1 tablet b.i.d., Claritin 10 mg q. day, metformin 1000 mg b.i.d., calcium citrate. PAST SURGICAL HISTORY: Notable for tubal ligation. FAMILY HISTORY: Described. Father just underwent coronary stenting for angina pectoris. SOCIAL HISTORY: The patient is a nonsmoker, nondrinker. She is modestly active about her home, works at a sedentary office job. PHYSICAL EXAMINATION: VITAL SIGNS: Heart rate 77, blood pressure is 124/81 this morning. Blood pressure on initial presentation last night was 192/115, O2 saturations are normal. HEENT: Normocephalic, atraumatic. Nares without discharge. Throat was clear. NECK: Supple without thyromegaly, lymphadenopathy. There is referred murmur at the base of the carotids. Carotid pulses have mild delay. LUNGS: Clear. CARDIOVASCULAR: Regular with grade 3/6 systolic murmur. S2 is single but present. ABDOMEN: Soft, nontender. There is no palpable hepatosplenomegaly. There is no hepatojugular reflux. EXTREMITIES: Without cyanosis or clubbing. There is no peripheral edema. There are intact distal pulses. LABORATORY DATA: EKG reveals sinus rhythm with minimal voltage criteria for left ventricular hypertrophy. Note, an occasional ventricular ectopy on presentation. EKG this morning demonstrates poor R-wave progression in V1, V2, likely lead placement. CK-MB and troponins are negative. Chest x-ray reveals no infiltrate or edema. IMPRESSION: A 60-year-old female who carries a history of congenitally bicuspid aortic valve with borderline severe to approaching severe aortic stenosis, presents now with symptoms of fullness in her chest and not feeling right. I suspect this is a combination of both hypertension and sensed ventricular ectopy. Since admission, no overt signs of injury or ischemia by troponin and cardiac enzymes. EKG demonstrates change in initial R-wave, progressive in V2. Echocardiogram will be ordered today to assess LV function. I have recommended initiation of low dose beta franky for blood pressure control as well as treatment of underlying ventricular ectopy. Would supplement potassium to above 4. The patient in the past has been reluctant to take medications. We discussed findings in detail with the patient. I have noted the potential concerns with aortic valve disease as now symptomatic, though historically this does not appear to be the case. The patient may warrant another night in the hospital to allow use of beta franky as she continues to use it. We would recommend discontinuing loratadine, continue all other medications as prescribed.
[2016-09-05] MEDS: ATORVASTATIN 20 MG TAB PO SCH (20:36)
[2016-09-05] MEDS: INSULIN GLARGINE SOLOSTAR 100 UNITS/ML 3 ML PEN SC SCH (21:18)
[2016-09-06 04:00] VITALS: BP 93/55; PULSE 52; TEMP 36.4; O2SAT 97
[2016-09-06 07:03] LABS: ESTIMATED AVERAGE GLUCOSE 246 mg/dl; HA1C FLAG Normal (Normal)
[2016-09-06 07:55] VITALS: BP 118/73; PULSE 59; TEMP 36.5; O2SAT 97
[2016-09-06] MEDS: CHOLECALCIFEROL 1000 INTER.UNIT TAB PO SCH (08:01)
[2016-09-06] MEDS: VITAMIN B COMPLEX TAB PO SCH (08:01)
[2016-09-06] MEDS: CALCIUM CARBONATE 1250MG TAB PO SCH (08:01)
[2016-09-06] MEDS: INSULIN GLARGINE SOLOSTAR 100 UNITS/ML 3 ML PEN SC SCH (08:04)
[2016-09-06] MEDS: INSULIN ASPART 100 UNITS/ML 3 ML PEN SC SCH ×2 (08:04→11:52)
[2016-09-06] MEDS ORDERED: METOPROLOL SUCC 25MG EXT REL TAB PO SCH (09:00)
--- NOTE | 2016-09-06 10:52 | CARDIOLOGY PROGRESS NOTE ---
DATE: 09/06/2016 The patient seen and examined. Chart, medications, telemetry reviewed. SUBJECTIVE: This morning the patient feels well. Notes no dizziness, lightheadedness. Notes no further chest pain. Blood pressures and heart rate have been well controlled. Telemetry reveals no arrhythmias. OBJECTIVE: VITAL SIGNS: Heart rate is 60, blood pressure is 118/73. HEENT: Normocephalic, atraumatic. NECK: Thin. There is no jugular venous distention. There are no carotid bruits. LUNGS: Clear. CARDIOVASCULAR: Regular, with a grade 2-3/6 systolic murmur. There is no diastolic murmur. PMI is nondisplaced. ABDOMEN: Soft, nontender. EXTREMITIES: Without cyanosis or clubbing. There is no peripheral edema. IMPRESSION: A 60-year-old female admitted with acute chest pain in association with marked hypertension and chronic and acute ventricular ectopy, no overt signs of cardiac ischemia. Findings are superimposed on chronic borderline severe aortic stenosis secondary to bicuspid aortic valve. RECOMMENDATIONS: The patient may be discharged on a very low dose beta franky. Will make arrangements for outpatient followup through cardiology, Dr. Collins, in the next 2-3 weeks' time.
--- NOTE | 2016-09-06 12:32 | Progress Note ---
Medicine Progress Note Date & Time of Visit: Sep 06, 2016 at 12:27. Subjective patient states she feels better overall denies dizziness, nausea, chest pain, dyspnea, palpitations no abdominal pain denies other symptoms states she is ready and would like to be discharged today Objective Last 8 Hrs Date Time Temp Pulse Resp B/P Pulse Ox O2 Delivery O2 Flow Rate FiO2 09/06/16 12:00 Room Air 09/06/16 08:00 Room Air 09/06/16 07:55 36.5 59 18 118/73 97 Room Air Physical Exam: General- oriented x 3, not in distress, speaks in sentences with no effort Neck- no JVD, no adenopathy Lungs- clear breath sounds bilaterally Heart- normal rate, regular rhythm; (+) grade 2-3/6 murmur Abdomen- normal bowel sounds, soft, nontender Extremities- no pretibial edema, no calf tenderness Neuro- alert, oriented x 3; no gross focal deficits Skin- warm & dry Laboratory Results: Last 24 Hours Test 09/05/16 16:10 09/05/16 20:12 09/06/16 06:33 09/06/16 11:18 Bedside Glucose 260 mg/dl 197 mg/dl 188 mg/dl 259 mg/dl Assessment & Plan 60 year old female with history of DM, HLD, Bicuspid Aortic Valve, Severe Aortic Stenosis, and other problems noted below presenting with chest discomfort. CHEST DISCOMFORT - LIKELY FROM HYPERTENSIVE URGENCY - cardiac markers negative ekg: non specific changes in inferior and septal leads echo * -- Conclusions -- * The left ventricle is normal in size. * There is moderate concentric left ventricular hypertrophy. * The left ventricular wall motion is normal. * Ejection Fraction = 60-65%. * The aortic valve is bicuspid. * The aortic valve leaflets are thickened and moderately calcified. * Borderline severe aortic stenosis is present, ALFRED 1.0 cm2. * No aortic regurgitation is present. * The aortic root is normal size. - evaluated by Dr. Fermin Metoprolol 12.5mg daily started - BP improved - continue Metoprolol 12.mg po daily monitor as outpatient SEVERE AORTIC STENOSIS Echo 06/15/2016- EF 60-64%, bicuspid aortic valve, moderately calcified aortic valve, severe - Cardiology consulted, no further intervention at this point DM TYPE 2 A1c given Lantus and Insulin at home - discharge on: Lantus 15 units at HS continue Metformin 1000mg BID stop Glimepiride patient given education re: Insulin administration advised to log BSG and bring with her during next PCP appointment patient is comfortable using the Insulin HYPERLIPIDEMIA Continue statin ANXIETY - patient declines medications DVT PROPHYLAXIS SCD's DISPOSITION ff up with PCP on Tuesday as scheduled ff up with Cardiology as advised Current Inpatient Medications: Current Inpatient Medications Medications (Trade) Dose Ordered Sig/Jah Route Start Time Stop Time Status Last Admin Dose Admin Ondansetron HCl (Zofran Inj) 4 mg Q6H PRN IV 09/04/16 19:30 10/04/16 19:29 Insulin Aspart (novoLOG ASPART) SLIDING SCALE If C... ACHS SC 09/04/16 21:45 10/04/16 21:44 09/06/16 11:52 9 UNITS Glucose (Glucose 40% Gel) 15-30 GRAMS 15 GRAMS... UD PRN PO 09/04/16 19:30 10/04/16 19:29 Glucose (Glucose Chew Tab) 4-8 Tablets 4 Tabl... UD PRN PO 09/04/16 19:30 10/04/16 19:29 Dextrose (Dextrose 50% 50ML Syringe) 25-50ML OF 50% DW IV FOR... UD PRN IV 09/04/16 19:30 10/04/16 19:29 Glucagon (Glucagon Inj) 1 mg UD PRN SQ 09/04/16 19:30 10/04/16 19:29 Atorvastatin Calcium (Lipitor Tab) 20 mg HS PO 09/04/16 21:45 10/04/16 21:44 09/05/16 20:36 20 MG Vitamin B Complex (Vitamin B Complex) 1 tab DAILY PO 09/05/16 09:00 10/05/16 08:59 09/06/16 08:01 1 TAB Cholecalciferol (Vitamin D Tab) 1,000 inter.unit DAILY PO 09/05/16 09:00 10/05/16 08:59 09/06/16 08:01 1,000 INTER.UNIT Calcium Carbonate (oS-Luis 500 TAB) 1 mg DAILY PO 09/05/16 09:00 10/05/16 08:59 09/06/16 08:01 1 MG Miscellaneous (Iv Fluids Completed) 1 ea PRN PRN N/A 09/04/16 20:15 09/04/17 20:14 Miscellaneous Information (Consult Glycemic Management Pharmacy) 1 ea UD PRN N/A 09/04/16 21:30 10/04/16 21:29 Metoprolol Succinate (Toprol Xl Tab) 12.5 mg QAM PO 09/06/16 09:00 10/05/16 08:59 09/06/16 08:00 12.5 MG Insulin Glargine (Lantus Solostar Pen) 0 UNITS FOR BSG 110MG... Q12 SC 09/05/16 21:00 10/05/16 20:59 09/06/16 08:04 10 UNIT
[2016-09-06] MEDS ORDERED: TPRSR25 PO (12:37)
[2016-09-06] MEDS ORDERED: INSDGIPEN SC (12:37)
[2016-09-06 12:43] VITALS: BP 132/83; PULSE 64; TEMP 36.3; O2SAT 98
[2016-09-06 12:47] VITALS: BP 132/83; PULSE 64; TEMP 36.3; O2SAT 98
--- NOTE | 2016-09-06 12:47 | Discharge Summary ---
Discharge Summary Admission Date: Sep 04, 2016 at 19:18 Discharge Date: Sep 06, 2016 Discharge Disposition: Home with services Principal Diagnosis: CHEST DISCOMFORT - LIKELY FROM HYPERTENSIVE URGENCY Secondary Diagnoses/Problems: PLEASE REFER TO HOSPITAL COURSE BELOW. Consultations: MD OPHTHALMOLOGIST DR. FERMIN Pending Studies/Follow-Up: PLEASE REFER TO HOSPITAL COURSE BELOW. Medication Reconciliation New Medications: Insulin Glargine (Lantus Solostar) 100 Unit/Ml Inj 15 UNIT SC HS for 30 Days, #5 PEN 2 Refills hold for blood sugar less than 110 Metoprolol Succinate (Metoprolol Succinate ER) 25 Mg Tabcr 12.5 MG PO QAM for 30 Days, #15 TAB 2 Refills Continued Medications: Atorvastatin (Atorvastatin Calcium) 20 Mg Tab 20 MG PO HS B-Complex Vitamins (Vitamin B Complex) 1 Tab Tab 1 TAB PO DAILY Cholecalciferol (Vitamin D) 5,000 Unit Tab 5000 INTER.UNIT PO DAILY Coenzyme Q10 (Ubidecarenone) (Co Q-10) 200 Mg Cap 200 MG PO DAILY Loratadine (Claritin) 10 Mg Tab 10 MG PO DAILY Metformin Hcl (Glucophage) 1,000 Mg Tab 1000 MG PO BID, TAB [Calcium Citrate] () 1 CAP PO DAILY Discontinued Medications: Glimepiride (Glimepiride) 4 Mg Tab 1 TAB PO BID for 90 Days, #180 TAB 3 Refills Admission Information HPI (per Admitting provider): This is a 60 year old female with PMH of DM type 2 on oral meds, uncontrolled in the past, hyperlipidemia, bicuspid aortic valve, severe aortic stenosis, history of Guillain-[place] syndrome at age 22, who presented to the ED with intermittent chest pain. Patient follows with Dr. Arzate for primary care and Dr. Collins for cardiology. Patient states yesterday and today she has intermittent chest vague discomfort lasting 10 minutes which is now resolved. She describes discomfort as "it doesn't feel right". It occurred today while sitting watching a movie. Not related to exertion. No associated diaphoresis, dizziness, IVEY, vision change, SOB, OJEDA, N/V, reflux, palpitations, calf pain, edema, numbness or weakness of extremities. Patient reports being very anxious lately due to her father being recently hospitalized here at [facility] and underwent 2 coronary artery stents. He is now discharged to home. Patient's blood pressure is elevated up to 190s/110s in the ER. She denies prior history of HTN or being on BP medications. Last time her BP was taken was in clinic in June - at that time BP was 138/82. Pt states blood sugars run 150-250 at home. Patient refused aspirin in the ER- states she was told not to take it at [place] when she had Guillain-[place] syndrome at age 22. She states she does not tolerate medications well. When I entered the room she was having nitro- paste placed, stated she was concerned it would cause a reaction. I informed her it may cause a headache and it was being given to dilate her blood vessels to improve perfusion to her heart and decrease the blood pressure. Immediately when nitro was placed patient became tearful and stated her lips were tingling, her nose "feels weird", her face was burning, and she felt she was "getting too much air". I removed the nitro paste and she reported resolution of symptoms. She states she had similar reactions in the past with Tylenol and ibuprofen. Patient declines medication for anxiety and also declines antihypertensive medication. Physical Exam (per Admitting): General Appearance: + obese, + pertinent finding (anxious, tearful multiple times) Head: normocephalic, atraumatic Eyes: normal inspection, PERRL, EOMI, sclerae normal ENT: hearing grossly normal, pharynx normal Neck: supple, no JVD, trachea midline Respiratory/Chest: lungs clear, normal breath sounds, no respiratory distress Cardiovascular: regular rate, rhythm (with occasional premature beat), normal peripheral pulses, + systolic murmur, + pertinent finding Abdomen/GI: normal bowel sounds, non tender, soft Extremities/Musculoskelatal: normal inspection, no calf tenderness, no pedal edema Neurologic/Psych: alert, normal mood/affect, oriented x 3, + pertinent finding (anxious, tearful multiple times. grossly nonfocal. speech is clear. no facial drooping. ) Skin: normal color, warm/dry Hospital Course 60 year old female with history of DM, HLD, Bicuspid Aortic Valve, Severe Aortic Stenosis, and other problems noted below presenting with chest discomfort. CHEST DISCOMFORT - LIKELY FROM HYPERTENSIVE URGENCY - cardiac markers negative ekg: non specific changes in inferior and septal leads echo * -- Conclusions -- * The left ventricle is normal in size. * There is moderate concentric left ventricular hypertrophy. * The left ventricular wall motion is normal. * Ejection Fraction = 60-65%. * The aortic valve is bicuspid. * The aortic valve leaflets are thickened and moderately calcified. * Borderline severe aortic stenosis is present, ALFRED 1.0 cm2. * No aortic regurgitation is present. * The aortic root is normal size. - evaluated by Dr. Fermin Metoprolol 12.5mg daily started - BP improved - continue Metoprolol 12.mg po daily monitor as outpatient SEVERE AORTIC STENOSIS Echo 06/15/2016- EF 60-64%, bicuspid aortic valve, moderately calcified aortic valve, severe - Cardiology consulted, no further intervention at this point DM TYPE 2, UNCONTROLLED A1c 10.2 given Lantus and Insulin while inpatient DM educator counselled patient - discharge on: Lantus 15 units at HS continue Metformin 1000mg BID stop Glimepiride patient given education re: Insulin administration advised to log BSG and bring with her during next PCP appointment patient is comfortable using the Insulin HYPERLIPIDEMIA Continue statin ANXIETY - patient declines medications DVT PROPHYLAXIS SCD's DISPOSITION ff up with PCP on Tuesday as scheduled ff up with Cardiology as advised Total time spent on discharge = 40 minutes This includes examination of the patient, discharge planning, medication reconciliation, and communication with other providers. Discharge Instructions Discharge Instructions Admission Reason for Admission: Chest Pain, Hypertensive Urgency Discharge Discharge Diagnosis / Problem: CHEST PAIN, HYPERTENSION Discharge Goals Goal(s): Diagnostic testing, Therapeutic intervention Activity Recommendations Activity Limitations: as noted below (NO HEAVY EXERTION UNTIL SEEN BY PRIMARY CARE PHYSICIAN) . Instructions / Follow-Up Instructions / Follow-Up PLEASE REVIEW YOUR MEDICATION LIST AND FOLLOW INSTRUCTIONS CAREFULLY. CHECK YOUR BLOOD SUGAR TWICE A DAY AND RECORD THEM. BRING THIS RECORD TO YOUR PRIMARY CARE PHYSICIAN. DO NOT ADMINISTED INSULIN IF YOUR BLOOD SUGAR IS BELOW 110. DO NOT SKIP MEALS. CALL YOUR PRIMARY CARE PHYSICIAN OR RETURN TO ER IMMEDIATELY IF WITH RECURRENCE OF SYMPTOMS- WEAKNESS, DIZZINESS, NAUSEA, BLOOD SUGAR READINGS BELOW 100 OR MORE THAN 300. FOLLOW UP WITH YOUR PRIMARY CARE PHYSICIAN THIS TUESDAY ADVISED. Current Hospital Diet Patient's current hospital diet: Diabetes Type 2 Diet, AHA Diet (Heart Healthy) Discharge Diet Recommended Diet: Low Sodium Diet (2gm Na), Diabetes Type 2 Diet Pending Studies Studies pending at discharge: no Laboratory Results Hemoglobin A1c Test 09/05/16 05:20 Range/Units Estimated Average Glucose 246 mg/dl Hemoglobin A1c 10.2 H 4.5-5.6 % Medical Emergencies . Who to Call and When: Medical Emergencies: If at any time you feel your situation is an emergency, please call 911 immediately. . Non-Emergent Contact Non-Emergency issues call your: Primary Care Provider Call Non-Emergent contact if: you have a fever, your pain is not controlled . Past History Medical & Surgical History: (1) Guillain-[place] syndrome (2) DM type 2 (diabetes mellitus, type 2) (3) Hyperlipidemia (4) Bicuspid aortic valve (5) Aortic valve stenosis (6) Hypertensive urgency (7) H/O tubal ligation . "Provider Documentation" section prepared by Brandon Jennings. VTE Core Measure Inpt VTE Proph given/why not?: SCD's
== END 2016-09-06 13:22 | disposition home or self-care (01) ==
LOC: ENRESERVDT → ENRESERVTM → C.EDB 16:14 → C.2T 19:18 → EDBEDREQ 19:38
PROVIDERS: ADMIT Internal Medicine; ATTEND Internal Medicine
DX: R07.89 Other chest pain (principal); I35.0 Nonrheumatic aortic (valve) stenosis; E11.65 Type 2 diabetes mellitus with hyperglycemia; E66.9 Obesity, unspecified; F41.9 Anxiety disorder, unspecified; E78.5 Hyperlipidemia, unspecified; I10 Essential (primary) hypertension; I25.10 Atherosclerotic heart disease of native coronary artery without angina pectoris; I49.3 Ventricular premature depolarization; Z79.4 Long term (current) use of insulin; Z95.1 Presence of aortocoronary bypass graft

== ENCOUNTER 2020-11-18 20:20 | Inpatient (IN) ==
[2020-11-18 21:30] LABS: Basophils # (auto) 0.02 K/uL (0-0.2); Basophils % (auto) 0.2 %; Eosinophils # (auto) 0.18 K/uL (0-0.5); Eosinophils % (auto) 2.2 %; Hematocrit (blood only) 36.2 % (37-47); Hemoglobin 12.5 g/dL (12.0-16.0); Immature Granulocytes # (auto) 0.02 K/uL (0.00-0.02); Immature Granulocytes % (auto) 0.2 %; Lymphocytes # (auto) 2.22 K/uL (1.2-3.4); Lymphocytes % (auto) 27.3 %; Mean Corpuscular Hemoglobin 30.8 pg (25-34); Mean Corpuscular Hgb Conc 34.5 g/dL (32-36); Mean Corpuscular Volume 89.2 fL (80-100); Mean Platelet Volume 10.1 fL (7.4-10.4); Monocytes # (auto) 0.99 K/uL (0.11-0.59); Monocytes % (auto) 12.2 %; Neutrophils # (auto) 4.71 K/uL (1.4-6.5); Neutrophils % (auto) 57.9 %; Platelet Count 272 K/uL (130-400); RDW Coefficient of Variation 13.3 % (11.5-14.5); RDW Standard Deviation 43.1 fL (36.4-46.3); Red Blood Count 4.06 M/uL (4.2-5.4); White Blood Count 8.14 K/uL (4.8-10.8)
[2020-11-18 21:43] LABS: Partial Thromboplastin Time 25.6 Seconds (21.0-31.0); Prothrombin Time 10.1 Seconds (9.0-12.0)
[2020-11-18 22:08] LABS: Albumin Globulin Ratio 0.9 (0.9-2); Albumin Level 3.4 gm/dl (3.4-5.0); BUN Creatinine Ratio 16.9 (10-20); Bilirubin,Total 1.2 mg/dl (0.2-1); Calcium 8.9 mg/dl (8.5-10.1); Creatinine Clr Calc Pharmacy 65.8 ml/min; Est GFR (African American) 79.4; Est GFR (Non-African American) 68.5; Globulin 3.7 gm/dl (2.5-4.0); Magnesium 1.9 mg/dl (1.8-2.4); Phosphorus 3.2 mg/dl (2.5-4.9); Potassium 3.6 mmol/L (3.5-5.1); Thyroid Stimulating Hormone 3.4 uIu/ml (0.300-4.500); Total Protein 7.1 gm/dl (6.4-8.2); Troponin I 0.087 ng/ml (0-0.045)
[2020-11-18 22:24] LABS: Beta-Hydroxybutyrate 17.46 mg/dl (0.2-2.81)
[2020-11-18 22:29] LABS: Appearance Urine Clear (Clear); Bilirubin Urine Negative (Negative); Blood Urine Negative (Negative); Color Urine Yellow; Glucose Urine UA 2+ (Negative); Ketones Urine 2+ (Negative); Leukocyte Esterase Urine Negative (Negative); Nitrite Urine Negative (Negative); Protein Urine Negative (Negative); Specific Gravity Urine 1.016 (1.000-1.030); Urobilinogen Urine Negative (Negative)
[2020-11-18 22:52] LABS: Influenza A virus by PCR Negative (Neg); Influenza B virus by PCR Negative (Neg); RSV by PCR Negative (Neg); SARS CoV2 RNA(COVID-19) InHosp NEGATIVE (Negative)
[2020-11-18] MEDS ORDERED: METOPROLOL TARTRATE 1 MG/ML VIAL IV STA (23:03)
[2020-11-18] MEDS ORDERED: MAGNESIUM SULFATE / D5W 1 GM/100 ML BAG IV STA (23:03)
--- NOTE | 2020-11-19 00:17 | Emergency Department Note ---
Impression & Plan Atrial fibrillation with rapid ventricular response, Hyperglycemia, S/P AVR, Elevated troponin ED Provider Note NAME: JARVIS LOTT AGE: 64 SEX: F ARRIVES VIA: Walk-In INFORMANT: Patient, ED PROVIDER(S): Mykel Frye MD CHIEF COMPLAINT: Palpitations, atrial fibrillation PLAN: Disposition: Admit MEDICAL DECISION MAKING: The patient is a pleasant 64-year-old woman with a past medical history of type 2 diabetes, hyperlipidemia, history of bicuspid aortic valve status post aortic valve replacement at [facility] on 11/13 subsequently discharged home today who now presents emergency department with episode of palpitations and shortness of breath which began this evening found to be in atrial fibrillation. Of note, the patient did have episode of atrial fibrillation on postop day 3 which was treated with amiodarone and had subsequent cardioversion. Per the patient she was on heparin injections while she was in the hospital but is not on anticoagulation on discharge but takes a daily baby aspirin. She reports feeling well today upon her discharge but her symptoms began this evening following dinner. Otherwise she denies any fevers, chills, cough, congestion, GI or symptoms. On arrival the patient is uncomfortable but no acute distress, afebrile with heart rate in the 130s in atrial fibrillation vital signs otherwise stable. On exam the patient does appear clinically dry. She has diminished breath sounds at the bases but is otherwise clear. Her sternal incision site is clean dry and intact. Trocar incision sites that have tape applied by the patient's son when he noticed they had slightly dehisced following suture removal on discharge. Otherwise these areas are also clean dry and intact. EKG without overt acute ischemia. Chest x-ray with mild venous congestion and small bilateral pleural effusions per my preliminary review. WBC, hemoglobin and platelets within normal limits. Glucose 310 with beta hydro xybutyrate 17 however chemistry without metabolic acidosis. Magnesium 1.9 with repletion provided and otherwise electrolytes unremarkable. LFTs without significant abnormality. Troponin 0.087, nonspecific in the setting of recent aortic valve replacement. TSH within normal limits. UA without evidence of infection though with 2+ ketones consistent with patient's clinical dry appearance. COVID-19 PCR negative. Influenza and RSV PCR also negative. I did perform a limited bedside cardiac and lung ultrasound which did not demonstrate any overt pericardial effusion. Small bilateral pleural effusions appreciated. On reevaluation the patient did feel improved with heart rate in the 90s-100s still in atrial fibrillation following her scheduled oral metoprolol which she took on arrival and gentle IV fluid hydration. IV Lopressor given for additional rate control. Given the patient's recurrence of A. fib with RVR in the setting of her recent AVR as well as her hyperglycemia, reasonable to meet the patient for further management. The patient is in agreement. Case was discussed with Dr. Schwab who, [facility] hospitalist, who evaluate the patient for admission. Will defer decision for anticoagulation and glycemic control to admitting team. Triage Nursing notes reviewed and agree them. Prior medical records reviewed Vital Signs: reviewed and remarkable for tachycardia. Differential diagnosis: Premature contractions, electrolyte abnormality, cardiac dysrhythmia, thyroid dysfunction, pulmonary embolism, infection, gastrointestinal, as well as other pathologies. ER treatment provided: See below. Diagnostics interpreted by me: ECG 2031: Atrial fibrillation with RVR with PVCs, 135 bpm, no overt ST elevation or depression, QTC 516, QRS 86. ECG 0: Atrial fibrillation with RVR with PVCs, 101 bpm, no overt ST elevation or depression, QTC 490, QRS 86. Cardiac Monitoring: An order for continuous cardiac monitoring was placed and demonstrated atrial fibrillation, 135 bpm, PVCs. Laboratory studies: See below Imaging studies: Chest x-ray with mild venous congestion and small bilateral pleural effusions per my preliminary review. Consultation(s): [facility] for [facility]. HPI: The patient is a pleasant 64-year-old woman with a past medical history of type 2 diabetes, hyperlipidemia, history of bicuspid aortic valve status post aortic valve replacement at [facility] on 11/13 subsequently discharged home today who now presents emergency department with episode of palpitations and shortness of breath which began this evening found to be in atrial fibrillation. Of note, the patient did have episode of atrial fibrillation on postop day 3 which was treated with amiodarone and had subsequent cardioversion. Per the patient she was on heparin injections while she was in the hospital but is not on anticoagulation on discharge but takes a daily baby aspirin. She reports feeling well today upon her discharge but her symptoms began this evening following dinner. Otherwise she denies any fevers, chills, cough, congestion, GI or symptoms. ROS: See above HPI for pertinent positives & negatives. A total of 10 systems reviewed and were otherwise negative. PAST MEDICAL HISTORY:See Below PAST SURGICAL HISTORY:See Below FAMILY HISTORY:See Below SOCIAL HISTORY:See Below HOME MEDICATIONS:See Below ALLERGIES:See Below VITALS:See Below PHYSICAL EXAMINATION: GENERAL: Awake, alert, fatigued-appearing, in no distress HENT: Normocephalic, atraumatic. Oropharynx with dry mucous membranes and otherwise unremarkable. EYES: Normal conjunctiva. Sclera non-icteric. NECK: Supple. No nuchal rigidity. FROM. No JVD. RESPIRATORY: Diminished at bases, otherwise clear to auscultation. CARDIAC: Tachycardic rate, irregular rhythm. Extremities warm and well perfused. Pulses equal. ABDOMEN: Soft, non-distended. No tenderness to palpation. No rebound or guarding. No masses. RECTAL: Deferred. MUSCULOSKELETAL: Chest examination reveals mild tenderness with scant ecchymosis appropriate for post-operative status. The back is symmetrical on inspection without obvious abnormality. There is no CVA tenderness to palpation. No joint edema. LOWER EXTREMITIES: Calves are equal size bilaterally and non-tender. No edema. No discoloration. NEURO: Normal sensorium. No sensory or motor deficits noted. SKIN: No rash or jaundice noted. Sternal and trocar incision sites c/d/i. ED COURSE: Procedures: Limited Point of Care Cardiac Ultrasound performed by me: Indication: Palpitations, afib, s/p AVR Findings: Limited echocardiography revealed no overt pericardial fluid. Atrial fibrillation. HR 100s. Impression: No overt pericardial effusion. --- Limited Point of Care Lung Ultrasound performed by me: Indication: Palpitations, afib, s/p AVR. Findings: Small bilateral pleural effusions. Impression: Bilateral pleural effusions. Critical Care: I have personally spent greater than 45 minutes of critical care time in the direct management of this patient. This includes bedside care, interpretation of diagnostic studies, and testing, discussion with consultants, patient, and family members, and other required patient management activities. This 45 minutes is in excess of all separately billable procedures. 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22" Hyperlipidemia Hypertension Hypertensive urgency Surgical History H/O tubal ligation Family History Other Family history of atrial fibrillation Myocardial infarction Social History Smoking Status: Never smoker Hx Alcohol Use: No Hx Substance Use: No Preferred Language: Northern Irish Communication Ability: Effective Beliefs That Will Affect Care: None Current Living Situation: Spouse Other Information That Helps Us Care for You: No Feels Safe at Home: Yes Safety Concerns: Feels Safe At This Time Allergies Allergies Allergy/AdvReac Type Severity Reaction Status Date / Time lisinopril Allergy Severe Edema Verified 11/18/20 21:33 face, lips, tongue. Home Meds Home Medications Medication Instructions Recorded Confirmed atorvastatin 20 mg PO QAM 06/12/19 11/18/20 coQ10 (ubiquinol) 200 mg PO DAILY 06/12/19 11/18/20 loratadine [Claritin] 10 mg PO DAILY PRN 06/12/19 11/18/20 vitamin B complex 1 tab PO DAILY 06/12/19 11/18/20 amiodarone 200 mg PO BID 11/18/20 11/18/20 aspirin 81 mg PO DAILY 11/18/20 11/18/20 calcium citrate 200 mg PO DAILY 11/18/20 11/18/20 cholecalciferol (vitamin D3) 125 mcg PO DAILY 11/18/20 11/18/20 [Vitamin D3] docusate sodium 100 mg PO DAILY 11/18/20 11/18/20 empagliflozin [Jardiance] 25 mg PO DAILY 11/18/20 11/18/20 famotidine 20 mg PO DAILY 11/18/20 11/18/20 furosemide [Lasix] 40 mg PO QAM 11/18/20 11/18/20 glipizide 20 mg PO DAILY 11/18/20 11/19/20 metformin See Rx Instructions .ROUTE .COMPLEX 11/18/20 11/18/20 metoprolol tartrate 25 mg PO BID 11/18/20 11/18/20 nystatin 1 applic TOPICAL BID PRN 11/18/20 11/18/20 oxycodone 5 mg PO Q4H PRN 11/18/20 11/18/20 potassium chloride 20 meq PO DAILY 11/18/20 11/18/20 Results & Data (ED) Vital Signs Vital Signs - 24 hr 11/18/20 20:26 11/18/20 20:40 11/18/20 20:47 Temperature 36.4 C L Temperature Source Temporal Artery Scan Pulse Rate 121 H 126 H 127 H Pulse Rate from SpO2 Sensor Respiratory Rate 20 21 17 Respiratory Depth Normal Blood Pressure 155/68 H 164/103 H Blood Pressure Mean 97 123 Pulse Oximetry 94 Oxygen Delivery Method Room Air Sepsis New/Unexplained Change in Mental Status N/A Sepsis Action Taken by Nursing No Action Required 11/18/20 21:00 11/18/20 21:20 11/18/20 21:40 Temperature Temperature Source Pulse Rate 132 H 124 H 128 H Pulse Rate from SpO2 Sensor Respiratory Rate 18 18 22 Respiratory Depth Blood Pressure 159/81 H Blood Pressure Mean 107 Pulse Oximetry Oxygen Delivery Method Sepsis New/Unexplained Change in Mental Status Sepsis Action Taken by Nursing 11/18/20 21:56 11/18/20 21:58 11/18/20 21:59 Temperature Temperature Source Pulse Rate 123 H Pulse Rate from SpO2 Sensor 128 H Respiratory Rate 26 H Respiratory Depth Blood Pressure 136/65 Blood Pressure Mean 88 Pulse Oximetry 97 96 96 Oxygen Delivery Method Room Air Room Air Sepsis New/Unexplained Change in Mental Status Sepsis Action Taken by Nursing 11/18/20 22:00 11/18/20 22:01 11/18/20 22:20 Temperature Temperature Source Pulse Rate 117 H 128 H 113 H Pulse Rate from SpO2 Sensor 117 H 121 H 118 H Respiratory Rate 16 18 19 Respiratory Depth Blood Pressure 119/73 Blood Pressure Mean 88 Pulse Oximetry 96 97 95 Oxygen Delivery Method Sepsis New/Unexplained Change in Mental Status Sepsis Action Taken by Nursing 11/18/20 22:30 11/18/20 22:32 11/18/20 22:40 Temperature Temperature Source Pulse Rate 116 H 105 H 105 H Pulse Rate from SpO2 Sensor 101 H 101 H 100 H Respiratory Rate 16 22 30 H Respiratory Depth Blood Pressure 113/68 113/68 Blood Pressure Mean 83 83 Pulse Oximetry 94 95 95 Oxygen Delivery Method Sepsis New/Unexplained Change in Mental Status Sepsis Action Taken by Nursing 11/18/20 23:00 11/18/20 23:01 11/18/20 23:20 Temperature Temperature Source Pulse Rate 102 H 99 H 99 H Pulse Rate from SpO2 Sensor 87 97 H 108 H Respiratory Rate 15 15 20 Respiratory Depth Blood Pressure 138/93 Blood Pressure Mean 108 Pulse Oximetry 95 96 93 Oxygen Delivery Method Sepsis New/Unexplained Change in Mental Status Sepsis Action Taken by Nursing 11/18/20 23:30 11/18/20 23:40 11/19/20 00:00 Temperature Temperature Source Pulse Rate 103 H 98 H 96 H Pulse Rate from SpO2 Sensor 90 101 H 92 H Respiratory Rate 18 17 18 Respiratory Depth Blood Pressure 130/88 122/71 Blood Pressure Mean 102 88 Pulse Oximetry 92 94 96 Oxygen Delivery Method Sepsis New/Unexplained Change in Mental Status Sepsis Action Taken by Nursing 11/19/20 00:20 11/19/20 00:30 11/19/20 00:40 Temperature Temperature Source Pulse Rate 93 H 72 73 Pulse Rate from SpO2 Sensor 93 H 72 72 Respiratory Rate 19 21 21 Respiratory Depth Blood Pressure 128/96 Blood Pressure Mean 106 Pulse Oximetry 95 95 95 Oxygen Delivery Method Sepsis New/Unexplained Change in Mental Status Sepsis Action Taken by Nursing Laboratory Data Attestation: I reviewed the patient's lab results. Result diagrams: 11/18/20 21:17 11/18/20 21:17 Lab Results 11/18/20 11/18/20 11/18/20 Range/Units 21:17 21:17 21:17 WBC 8.14 (4.8-10.8) K/uL RBC 4.06 L (4.2-5.4) M/uL Hgb 12.5 (12.0-16.0) g/dL Hct 36.2 L (37-47) % MCV 89.2 (80-100) fL MCH 30.8 (25-34) pg MCHC 34.5 (32-36) g/dL RDW Std Deviation 43.1 (36.4-46.3) fL RDW Coeff of Lucy 13.3 (11.5-14.5) % Plt Count 272 (130-400) K/uL MPV 10.1 (7.4-10.4) fL Immature Gran % (Auto) 0.2 % Neut % (Auto) 57.9 % Lymph % (Auto) 27.3 % [place] % (Auto) 12.2 % Eos % (Auto) 2.2 % Baso % (Auto) 0.2 % Neut # (Auto) 4.71 (1.4-6.5) K/uL Lymph # (Auto) 2.22 (1.2-3.4) K/uL [place] # (Auto) 0.99 H (0.11-0.59) K/uL Eos # (Auto) 0.18 (0-0.5) K/uL Baso # (Auto) 0.02 (0-0.2) K/uL Immature Gran # (Auto) 0.02 (0.00-0.02) K/uL PT 10.1 (9.0-12.0) Seconds INR 1.0 (0.9-1.1) APTT 25.6 (21.0-31.0) Seconds PTT Ratio 1.0 Sodium 134 L (136-145) mmol/L Potassium 3.6 (3.5-5.1) mmol/L Chloride 98 (98-107) mmol/L Carbon Dioxide 26 (21-32) mmol/L Anion Gap 10.0 (3-11) BUN 15 (7-18) mg/dl Creatinine 0.90 (0.6-1.2) mg/dl Est Cr Clr Drug Dosing 65.8 ml/min Est GFR ( Amer) 79.4 Est GFR (Non-Af Amer) 68.5 BUN/Creatinine Ratio 16.9 (10-20) Glucose 310 H* (70-99) mg/dl POC Glucose (70-99) mg/dl Calcium 8.9 (8.5-10.1) mg/dl Phosphorus 3.2 (2.5-4.9) mg/dl Magnesium 1.9 (1.8-2.4) mg/dl Total Bilirubin 1.2 H (0.2-1) mg/dl AST 13 L (15-37) U/L ALT 9 L (12-78) U/L Alkaline Phosphatase 80 (45-117) U/L Troponin I 0.087 H* (0-0.045) ng/ml Total Protein 7.1 (6.4-8.2) gm/dl Albumin 3.4 (3.4-5.0) gm/dl Globulin 3.7 (2.5-4.0) gm/dl Albumin/Globulin Ratio 0.9 (0.9-2) Beta-Hydroxybutyric Acd 17.46 H (0.2-2.81) mg/dl TSH 3.400 (0.300-4.500) uIu/ml Urine Color Urine Appearance (Clear) Urine pH (4.5-7.5) Ur Specific Eldred (1.000-1.030) Urine Protein (Negative) Urine Glucose (UA) (Negative) Urine Ketones (Negative) Urine Blood (Negative) Urine Nitrite (Negative) Urine Bilirubin (Negative) Urine Urobilinogen (Negative) Ur Leukocyte Esterase (Negative) COVID-19 Eval Order SARS-CoV-2 (PCR) (Negative) Influenza Type A (PCR) (Neg) Influenza Type B (PCR) (Neg) RSV (RT-PCR) (Neg) 11/18/20 11/18/20 11/18/20 Range/Units 21:33 22:00 22:00 WBC (4.8-10.8) K/uL RBC (4.2-5.4) M/uL Hgb (12.0-16.0) g/dL Hct (37-47) % MCV (80-100) fL MCH (25-34) pg MCHC (32-36) g/dL RDW Std Deviation (36.4-46.3) fL RDW Coeff of Lucy (11.5-14.5) % Plt Count (130-400) K/uL MPV (7.4-10.4) fL Immature Gran % (Auto) % Neut % (Auto) % Lymph % (Auto) % [place] % (Auto) % Eos % (Auto) % Baso % (Auto) % Neut # (Auto) (1.4-6.5) K/uL Lymph # (Auto) (1.2-3.4) K/uL [place] # (Auto) (0.11-0.59) K/uL Eos # (Auto) (0-0.5) K/uL Baso # (Auto) (0-0.2) K/uL Immature Gran # (Auto) (0.00-0.02) K/uL PT (9.0-12.0) Seconds INR (0.9-1.1) APTT (21.0-31.0) Seconds PTT Ratio Sodium (136-145) mmol/L Potassium (3.5-5.1) mmol/L Chloride (98-107) mmol/L Carbon Dioxide (21-32) mmol/L Anion Gap (3-11) BUN (7-18) mg/dl Creatinine (0.6-1.2) mg/dl Est Cr Clr Drug Dosing ml/min Est GFR ( Amer) Est GFR (Non-Af Amer) BUN/Creatinine Ratio (10-20) Glucose (70-99) mg/dl POC Glucose (70-99) mg/dl Calcium (8.5-10.1) mg/dl Phosphorus Cancelled (2.5-4.9) mg/dl Magnesium Cancelled (1.8-2.4) mg/dl Total Bilirubin (0.2-1) mg/dl AST (15-37) U/L ALT (12-78) U/L Alkaline Phosphatase (45-117) U/L Troponin I (0-0.045) ng/ml Total Protein (6.4-8.2) gm/dl Albumin (3.4-5.0) gm/dl Globulin (2.5-4.0) gm/dl Albumin/Globulin Ratio (0.9-2) Beta-Hydroxybutyric Acd (0.2-2.81) mg/dl TSH Cancelled (0.300-4.500) uIu/ml Urine Color Urine Appearance (Clear) Urine pH (4.5-7.5) Ur Specific [place] (1.000-1.030) Urine Protein (Negative) Urine Glucose (UA) (Negative) Urine Ketones (Negative) Urine Blood (Negative) Urine Nitrite (Negative) Urine Bilirubin (Negative) Urine Urobilinogen (Negative) Ur Leukocyte Esterase (Negative) COVID-19 Eval Order CovFluRsv at [facility] SARS-CoV-2 (PCR) NEGATIVE (Negative) Influenza Type A (PCR) Negative (Neg) Influenza Type B (PCR) Negative (Neg) RSV (RT-PCR) Negative (Neg) 11/18/20 11/18/20 Range/Units 23:51 Unknown WBC (4.8-10.8) K/uL RBC (4.2-5.4) M/uL Hgb (12.0-16.0) g/dL Hct (37-47) % MCV (80-100) fL MCH (25-34) pg MCHC (32-36) g/dL RDW Std Deviation (36.4-46.3) fL RDW Coeff of Lucy (11.5-14.5) % Plt Count (130-400) K/uL MPV (7.4-10.4) fL Immature Gran % (Auto) % Neut % (Auto) % Lymph % (Auto) % [place] % (Auto) % Eos % (Auto) % Baso % (Auto) % Neut # (Auto) (1.4-6.5) K/uL Lymph # (Auto) (1.2-3.4) K/uL [place] # (Auto) (0.11-0.59) K/uL Eos # (Auto) (0-0.5) K/uL Baso # (Auto) (0-0.2) K/uL Immature Gran # (Auto) (0.00-0.02) K/uL PT (9.0-12.0) Seconds INR (0.9-1.1) APTT (21.0-31.0) Seconds PTT Ratio Sodium (136-145) mmol/L Potassium (3.5-5.1) mmol/L Chloride (98-107) mmol/L Carbon Dioxide (21-32) mmol/L Anion Gap (3-11) BUN (7-18) mg/dl Creatinine (0.6-1.2) mg/dl Est Cr Clr Drug Dosing ml/min Est GFR ( Amer) Est GFR (Non-Af Amer) BUN/Creatinine Ratio (10-20) Glucose (70-99) mg/dl POC Glucose 284 H (70-99) mg/dl Calcium (8.5-10.1) mg/dl Phosphorus (2.5-4.9) mg/dl Magnesium (1.8-2.4) mg/dl Total Bilirubin (0.2-1) mg/dl AST (15-37) U/L ALT (12-78) U/L Alkaline Phosphatase (45-117) U/L Troponin I (0-0.045) ng/ml Total Protein (6.4-8.2) gm/dl Albumin (3.4-5.0) gm/dl Globulin (2.5-4.0) gm/dl Albumin/Globulin Ratio (0.9-2) Beta-Hydroxybutyric Acd (0.2-2.81) mg/dl TSH (0.300-4.500) uIu/ml Urine Color Yellow Urine Appearance Clear (Clear) Urine pH 6.0 (4.5-7.5) Ur Specific [place] 1.016 (1.000-1.030) Urine Protein Negative (Negative) Urine Glucose (UA) 2+ H (Negative) Urine Ketones 2+ H (Negative) Urine Blood Negative (Negative) Urine Nitrite Negative (Negative) Urine Bilirubin Negative (Negative) Urine Urobilinogen Negative (Negative) Ur Leukocyte Esterase Negative (Negative) COVID-19 Eval Order SARS-CoV-2 (PCR) (Negative) Influenza Type A (PCR) (Neg) Influenza Type B (PCR) (Neg) RSV (RT-PCR) (Neg) Administered Medications Sodium Chloride (Nss) 500 mls @ 75 mls/hr IV .Q6H40M [facility] Stop: 11/19/20 08:24 Last Admin: 11/19/20 02:13 Dose: 75 mls/hr Documented by: [id number] Heparin Sodium/Dextrose (Heparin Sodium/Dextrose) 25,000 units in 500 mls @ 15 mls/hr IV .Q24H [facility]; Protocol Stop: 12/19/20 01:27 Last Admin: 11/19/20 01:42 Dose: 750 units/hr, 15 mls/hr Documented by: [id number] Cosigned by: [id number] Discontinued Medications Heparin Sodium/Dextrose (Heparin 07536 Unit/500 Ml D5w) Confirm Administered Dose 25,000 units IV .STK-MED [facility] Stop: 11/19/20 01:12 Last Admin: 11/19/20 02:13 Dose: Not Given Documented by: [id number] Magnesium Sulfate/Dextrose (Magnesium Sulfate / D5w) 1 gm in 100 mls @ 100 mls/hr IV NOW STA Stop: 11/19/20 00:02 Last Infusion: 11/19/20 00:34 Dose: 0 mls/hr Documented by: [id number] Admin: 11/18/20 23:25 Dose: 100 mls/hr Documented by: [id number] Metoprolol Tartrate (Metoprolol Tartrate 1 Mg/Ml Vial) 5 mg IV NOW STA Stop: 11/18/20 23:04 Last Admin: 11/18/20 23:25 Dose: 5 mg Documented by: [id number] Discharge Plan Visit Data Chief Complaint: Cardiac Assessment Stated Complaint: possible afib, 11/13/20 open heart surgury ED Provider: Mykel Frye Discharge Problem: Atrial fibrillation with rapid ventricular response, Hyperglycemia, S/P AVR, Elevated troponin Patient Disposition: Admitted As Inpatient Discharge Instructions Interventions: ED Discharge Assessment Last Done: 11/19/20 01:50
[2020-11-19] MEDS ORDERED: HEPARIN 25000 UNIT/500 ML D5W IV ONE (01:11)
[2020-11-19] MEDS ORDERED: NITROGLYCERIN SL 0.4 MG/TAB TAB SL PRN (01:28)
[2020-11-19] MEDS ORDERED: NYSTATIN CR 15 GM TUBE EXT PRN (01:28)
[2020-11-19] MEDS ORDERED: POLYETHYLENE (MIRALAX) 17 GM PACK PO PRN (01:28)
[2020-11-19] MEDS ORDERED: oxyCODONE HCL IR 5 MG TAB (IMMEDIATE RELEASE) PO PRN (01:28)
[2020-11-19] MEDS ORDERED: LORATADINE 10 MG TAB PO PRN (01:28)
[2020-11-19] MEDS ORDERED: Heparin IV Adult Wt-Based Low-Dose *NO* Bolus Protocol ONE (01:28)
[2020-11-19] MEDS ORDERED: METOPROLOL TARTRATE 1 MG/ML VIAL IV PRN (01:28)
[2020-11-19] MEDS ORDERED: ONDANSETRON INJ 2 MG/ML 2 ML VIAL IV PRN (01:28)
[2020-11-19] MEDS: HEPARIN SODIUM/DEXTROSE 25,000 UNITS/500 ML BAG IV SCH (01:42)
[2020-11-19] MEDS ORDERED: SODIUM CHLORIDE 0.9% 500 ML IV SCH (01:45)
--- NOTE | 2020-11-19 03:23 | History and Physical Report ---
DATE OF ADMISSION: 11/19/2020 CHIEF COMPLAINT: Palpitations. HISTORY OF PRESENT ILLNESS: A 64-year-old female with past medical history significant for type 2 diabetes, hyperlipidemia, chronic rhinitis, bicuspid aortic valve critical aortic stenosis, recent bioprosthetic aortic valve replacement, hypertension, history of PVCs, vitamin D deficiency, obesity. The patient presents with palpitations. The patient was admitted to [facility] on 11/13/2020 for valve surgery for critical aortic stenosis on bicuspid aortic valve. The patient underwent aortic valve replacement with Inspiris valve on 11/13/2020. On the second day of postop, she developed AFib for some time. She was treated with amiodarone and she did okay and there was a question of pancreatic mass and she had a CT of pancreas protocol and no mass was identified and the patient was discharged home on 11/18/2020 around afternoon. The patient says in the evening, she was watching TV and suddenly felt heart palpitations, no chest pain, no shortness of breath, no other symptoms, and she came here and found to be in rapid AFib in like 120-130s. After 5mg iv Lopressor, she converted into sinus rhythm. Resting comfortably. Denies any headache. No blurred vision, no dizziness, no earache, no runny nose, no sore throat. Appetite is okay. No difficulty swallowing. No chest pain, no nausea, no vomiting, no abdominal pain, no shortness of breath. Normal bowel and bladder movements. No blood in the stools or black stools. No hematuria. No rash. Ambulating okay. Her son is visiting from [place], who works as a nurse in the ER . ALLERGIES: LISINOPRIL. PAST MEDICAL HISTORY: As mentioned above. PAST SURGICAL HISTORY: Cardiac catheterization, ligation of oviduct, replacement of aortic valve with prosthetic valve. MEDICATIONS: The patient is on amiodarone 200 mg p.o. b.i.d., aspirin 81 mg p.o. daily, atorvastatin 20 mg p.o. a.m., calcium citrate 200 mg p.o. daily, vitamin D 125 mcg p.o. daily, Coenzyme Q10 200 mg p.o. daily, Colace 100 mg p.o. daily, Jardiance 25 mg p.o. daily, famotidine 20 mg p.o. daily, Lasix 40 mg p.o. a.m., glipizide 20 mg p.o. daily, Claritin 10 mg p.o. daily p.r.n., metformin advised to hold for a few days, metoprolol tartrate 25 mg p.o. b.i.d., nystatin 1 topical b.i.d. p.r.n., oxycodone 5 mg p.o. q. 4 hours p.r.n., potassium chloride 20 mEq p.o. daily, vitamin B complex 1 tablet p.o. daily. FAMILY HISTORY: Significant for paternal grandmother had breast cancer, mother has diabetes, father has hypertension. SOCIAL HISTORY: No smoking, no alcohol, no drug use. REVIEW OF SYSTEMS: As per HPI. Rest of the review of systems negative. PHYSICAL EXAMINATION: GENERAL: The patient is of moderate build, not in acute distress. VITAL SIGNS: Temperature 36.4, pulse when she came in was in the 120s, currently 98, respiratory rate 17, blood pressure 130/88, oxygen 94% on room air. HEENT: Pupils equal, round, reactive to light. Oral mucosa moist. NECK: No JVD, no neck masses. CARDIOVASCULAR: S1, S2 heard, regular rate and rhythm, no murmur, no gallop. Surgical scar clean. RESPIRATORY SYSTEM: Normal AP diameter. No accessory muscle use. No wheezing, no crackles. ABDOMEN: Soft, bowel sounds present, nontender. No distention. CENTRAL NERVOUS SYSTEM: Cranial nerves II-XII grossly intact. Nonfocal. EXTREMITIES: No edema, no erythema. LABORATORY DATA: WBC 8.1, hemoglobin 12.5, hematocrit 36.2, platelets 272. PT 10.1, INR 1, APTT 25.6. Sodium 134, potassium 3.6, chloride 98, bicarbonate 26, BUN 15, creatinine 0.9, serum glucose 310, calcium 8.9, phosphorus 3.2, magnesium 1.9, total bilirubin 1.2, AST 13, ALT 9, alkaline phosphatase 80, troponin I of 0.08. Beta hydroxybutyric acid 17.46. TSH 3.4. Urinalysis negative. COVID PCR negative. Influenza A and B PCR negative. RSV PCR negative. IMAGING DATA: Chest x-ray, no acute findings seen. EKG: When she came in, was in rapid AFib with a rate of 135 with PVCs. QTc of 516. Repeat EKG shows AFib with a rate of 101, QTc of 490. ASSESSMENT AND PLAN: A 64-year-old female who presents with rapid atrial fibrillation. 1. Rapid atrial fibrillation: The patient recently on 11/13/2020 underwent aortic valve replacement with bioprosthetic valve for critical aortic stenosis of the bicuspid aortic valve. Postoperatively, on second day developed rapid atrial fibrillation, resolved with amiodarone. The patient got discharged on amiodarone and aspirin. After coming home, again she had palpitation, came to the ER, and found to be in rapid atrial fibrillation. After 5mg of iv Lopressor, rate is under control. Seems to be in sinus rhythm on the monitor. Will continue her home metoprolol 25 b.i.d. and amiodarone [address] will place her on IV Lopressor p.r.n. Continue her aspirin. We will place on low dose IV heparin until seen by cardiology. We will keep her n.p.o. until seen by cardiology and closely monitor in the tele floor. 2. Mild elevation of troponin: Mostly demand ischemia from rapid atrial fibrillation. Will follow serial enzymes, echo as per cardiology. 3. Bicuspid aortic valve critical aortic stenosis status post aortic valve replacement recently with bioprosthetic valve. Follow up with cardiology and CT surgery. 4. Diabetes: Sugars are running high. Hold Jardiance and glipizide and metformin. Was placed on Lantus and insulin sliding scale. Follow HbA1c level. Will follow the blood sugars. 5. Hyperlipidemia: Continue statin. 6. Deep venous thrombosis prophylaxis: iv Heparin. DISPOSITION: Closely monitor in the tele floor. Level 1 full code. Expect to discharge home and follow with family doctor. MTDD
[2020-11-19] MEDS: INSULIN ASPART 100 UNITS/ML 3 ML PEN SC SCH ×4 (06:27→21:52)
--- NOTE | 2020-11-19 06:37 | XRay Report ---
XR chest 1V portable CLINICAL HISTORY: Chest pain. COMPARISON STUDY: Chest radiograph June 03, 2019. FINDINGS: There are median sternotomy wires and a prosthetic cardiac valve. Moderate cardiomegaly is noted. There is no pneumothorax. Small left and trace right pleural effusions are noted. There are bi basilar opacities. There is pulmonary vascular congestion. IMPRESSION: 1. Small left and trace right pleural effusions with bibasilar opacities which may reflect atelectasi s or consolidation. Radiographic follow-up is recommended. 2. Pulmonary vascular congestion. 3. Cardiomegaly. ACT 112: Negative or not required by law. Electronically signed by: Rolando Cr M.D. 11/19/2020 6:35 AM
[2020-11-19 08:09] LABS: Basophils # (auto) 0.01 K/uL (0-0.2); Basophils % (auto) 0.2 %; Eosinophils # (auto) 0.24 K/uL (0-0.5); Eosinophils % (auto) 3.9 %; Hematocrit (blood only) 35.9 % (37-47); Hemoglobin 11.8 g/dL (12.0-16.0); Immature Granulocytes # (auto) 0.04 K/uL (0.00-0.02); Immature Granulocytes % (auto) 0.7 %; Lymphocytes % (auto) 29.4 %; Mean Corpuscular Hemoglobin 29.6 pg (25-34); Mean Corpuscular Hgb Conc 32.9 g/dL (32-36); Mean Corpuscular Volume 90.2 fL (80-100); Monocytes # (auto) 0.66 K/uL (0.11-0.59); Monocytes % (auto) 10.8 %; Neutrophils # (auto) 3.37 K/uL (1.4-6.5); Platelet Count 254 K/uL (130-400); RDW Coefficient of Variation 13.2 % (11.5-14.5); RDW Standard Deviation 43.8 fL (36.4-46.3); Red Blood Count 3.98 M/uL (4.2-5.4); White Blood Count 6.12 K/uL (4.8-10.8)
[2020-11-19 08:20] LABS: Partial Thromboplastin Ratio 1.2; Partial Thromboplastin Time 32.8 Seconds (21.0-31.0)
[2020-11-19 08:45] LABS: BUN Creatinine Ratio 19.9 (10-20); Est GFR (African American) 109.2; Est GFR (Non-African American) 94.2; Magnesium 2.3 mg/dl (1.8-2.4); Potassium 3.7 mmol/L (3.5-5.1)
[2020-11-19] MEDS ORDERED: Nursing to Pharmacy Communication SCH (08:45)
[2020-11-19 08:47] LABS: Estimated Average Glucose 206 mg/dl; Hemoglobin A1C 8.8 % (4.5-5.6)
[2020-11-19 08:57] LABS: Troponin I 0.074 ng/ml (0-0.045)
[2020-11-19] MEDS ORDERED: INSULIN GLARGINE SOLOSTAR 100 UNITS/ML 3 ML PEN SC SCH (09:00)
[2020-11-19] MEDS ORDERED: FUROSEMIDE 40 MG TAB PO SCH (09:00)
[2020-11-19] MEDS ORDERED: Heparin BOLUS **ED Use Only IV STA (09:06)
[2020-11-19] MEDS: CHOLECALCIFEROL 1,000 UNITS 25 MCG TAB PO SCH (10:06)
[2020-11-19] MEDS: CALCIUM CITRATE 950 MG TAB PO SCH (10:06)
[2020-11-19] MEDS: METOPROLOL TARTRATE 25 MG TAB PO SCH ×2 (10:06→21:52)
[2020-11-19] MEDS: DOCUSATE SODIUM 100 MG CAP PO SCH (10:06)
[2020-11-19] MEDS: AMIODARONE 200 MG TAB PO SCH ×2 (10:06→21:52)
[2020-11-19] MEDS: FAMOTIDINE 20 MG TAB PO SCH (10:06)
[2020-11-19] MEDS: VITAMIN B COMPLEX TAB PO SCH (10:06)
[2020-11-19] MEDS: ASPIRIN 81 MG ECTAB PO SCH (10:06)
[2020-11-19] MEDS: ATORVASTATIN 20 MG TAB PO SCH (10:06)
[2020-11-19] MEDS: POTASSIUM CHLORIDE CRTAB 20 MEQ TABCR PO SCH (10:07)
[2020-11-19] MEDS: ACETAMINOPHEN 325 MG TAB PO PRN (10:40)
--- NOTE | 2020-11-19 12:51 | CT Scan Report ---
CT head/brain wo con CLINICAL HISTORY: Altered mental status COMPARISON STUDY: 04/18/2014 TECHNIQUE: Axial CT of the brain is performed from the vertex to the skull base. IV contrast was not administered for this examination. A dose lowering technique was utilized adhering to the principles of ALARA. CT DOSE: 537.48 mGy.cm FINDINGS: No intra or extra-axial mass lesions are visualized. There is no CT evidence of acute cortical infarc tion. There is no evidence of midline shift. There is no acute hemorrhage. No calvarial fractures ar e visualized. There are patchy white matter hypodensities likely on a small vessel basis. There is no hydrocephalus. There is a cavum septa pellucida and cavum vergae. There is no evidence of acute sinusitis IMPRESSION: No acute intracranial findings ACT 112: Negative or not required by law. Electronically signed by: Bautista Blanco M.D. 11/19/2020 12:49 PM
--- NOTE | 2020-11-19 12:55 | Electrocardiogram Report ---
Test Reason : Blood Pressure : / mmHG Vent. Rate : 135 BPM Atrial Rate : 131 BPM P-R Int : 000 ms QRS Dur : 086 ms QT Int : 344 ms P-R-T Axes : 000 -29 058 degrees QTc Int : 516 ms Atrial fibrillation with rapid ventricular response with premature ventricular or aberrantly conducte d complexes Abnormal ECG When compared with ECG of 12-JUN-2019 02:08, Atrial fibrillation has replaced Sinus rhythm Confirmed by Howard Elliott ([id number]) on 11/19/2020 12:54:50 PM Referred By: Traci Arzate Confirmed By:Howard Elliott
--- NOTE | 2020-11-19 13:34 | Electrocardiogram Report ---
Test Reason : Blood Pressure : / mmHG Vent. Rate : 101 BPM Atrial Rate : 107 BPM P-R Int : 000 ms QRS Dur : 086 ms QT Int : 378 ms P-R-T Axes : 000 -32 060 degrees QTc Int : 490 ms Atrial fibrillation with rapid ventricular response Left axis deviation Pulmonary disease pattern Abnormal ECG When compared with ECG of 18-NOV-2020 20:32, (unconfirmed) No significant change was found Confirmed by Howard Elliott ([id number]) on 11/19/2020 1:34:33 PM Referred By: Traci Arzate Confirmed By:Howard Elliott
--- NOTE | 2020-11-19 13:45 | Electrocardiogram Report ---
Test Reason : Blood Pressure : / mmHG Vent. Rate : 076 BPM Atrial Rate : 076 BPM P-R Int : 216 ms QRS Dur : 084 ms QT Int : 390 ms P-R-T Axes : 044 -21 066 degrees QTc Int : 438 ms Sinus rhythm with 1st degree A-V block Possible Left atrial enlargement Borderline ECG When compared with ECG of 18-NOV-2020 23:50, (unconfirmed) Sinus rhythm has replaced Atrial fibrillation Confirmed by Howard Elliott ([id number]) on 11/19/2020 1:44:32 PM Referred By: Traci Arzate Confirmed By:Howard Elliott
[2020-11-19 13:52] LABS: Base Excess VBG 4.3 mEq/L; pH VBG 7.47 (7.36-7.41)
[2020-11-19 14:01] LABS: BUN Creatinine Ratio 19.4 (10-20); Calcium 9.1 mg/dl (8.5-10.1); Creatinine Clr Calc Pharmacy 92.1 ml/min; Est GFR (African American) 110.8; Est GFR (Non-African American) 95.6
[2020-11-19 16:36] LABS: Partial Thromboplastin Ratio 1.6; Partial Thromboplastin Time 40.9 Seconds (21.0-31.0)
[2020-11-19] MEDS ORDERED: POTASSIUM CHLORIDE CRTAB 20 MEQ TABCR PO STA (16:37)
[2020-11-19] MEDS ORDERED: FUROSEMIDE 20 MG in SYRINGE 0 ML IV ONE (16:45)
--- NOTE | 2020-11-19 17:19 | Cardiology Consultation ---
Date of Consultation November 19, 2020 Assessment & Plan (1) Atrial fibrillation with rapid ventricular response: Patient has converted to sinus rhythm. Continue amiodarone 200 mg p.o. twice daily. Continue metoprolol tartrate 25 mg p.o. twice daily. Continue heparin for stroke prophylaxis. Continue heparin Infusion bridge. Given recurrence of atrial fibrillation, proceed with Coumadin initiation. Per most recent update on the AHA/ACC guidelines for the treatment of valvular heart disease, early after bioprosthetic aortic valve replacement, the anticoagulant of choice for patients with atrial fibrillation remains Coumadin. (2) S/P AVR: Bioprosthetic aortic valve function normal on echo. No pericardial effusion. Mild volume overload with moderate left pleural effusion by echocardiographic appearance. Start IV furosemide. (3) Hyperglycemia: Optimize diabetes treatment. Updates discussed via speaker phone with the patient's son, Deshawn, while in Ms Rodriguez's room. History of Present Illness Attending Physician: Iván Ambrosio MD History of Present Illness Darcie Rodriguez is a 64 year old female seen in cardiology consultation per the request of Dr Schwab for the evaluation of an irregular and fast heart beat. The patient is well-known to the undersigned as I follow her as an outpatient. She had recently been admitted to [facility] from 11/13/2020 until 11/18/2020 having undergone surgical aortic valve replacement receiving a 23mm Moore Inspiris valve 11/13/20. On postoperative day 3 she had an episode of atrial fibrillation and she was therefore discharged on amiodarone. Last evening she presented to the emergency department and was found to be in atrial fibrillation with rapid ventricular rate at approximately 130 bpm. She was placed on IV heparin. She subsequently converted to sinus rhythm at 12:26 AM and has been in sinus rhythm since. She had some degree of exertional shortness of breath. At present she is comfortable. Allergies Allergy/AdvReac Type Severity Reaction Status Date / Time lisinopril Allergy Severe Edema Verified 11/18/20 21:33 face, lips, tongue. Home Medications Medication Instructions Recorded Confirmed Type atorvastatin 20 mg PO QAM 06/12/19 11/18/20 History coQ10 (ubiquinol) 200 mg PO DAILY 06/12/19 11/18/20 History loratadine [Claritin] 10 mg PO DAILY PRN 06/12/19 11/18/20 History vitamin B complex 1 tab PO DAILY 06/12/19 11/18/20 History amiodarone 200 mg PO BID 11/18/20 11/18/20 History aspirin 81 mg PO DAILY 11/18/20 11/18/20 History calcium citrate 200 mg PO DAILY 11/18/20 11/18/20 History cholecalciferol (vitamin D3) 125 mcg PO DAILY 11/18/20 11/18/20 History [Vitamin D3] docusate sodium 100 mg PO DAILY 11/18/20 11/18/20 History empagliflozin [Jardiance] 25 mg PO DAILY 11/18/20 11/18/20 History famotidine 20 mg PO DAILY 11/18/20 11/18/20 History furosemide [Lasix] 40 mg PO QAM 11/18/20 11/18/20 History glipizide 20 mg PO DAILY 11/18/20 11/19/20 History metformin See Rx Instructions .ROUTE .COMPLEX 11/18/20 11/18/20 History metoprolol tartrate 25 mg PO BID 11/18/20 11/18/20 History nystatin 1 applic TOPICAL BID PRN 11/18/20 11/18/20 History oxycodone 5 mg PO Q4H PRN 11/18/20 11/18/20 History potassium chloride 20 meq PO DAILY 11/18/20 11/18/20 History Patient History Medical History Aortic valve stenosis "echo 06/15/2016- EF 60-64%, bicuspid aortic valve, moderately calcified ao rtic valve, severe " Bicuspid aortic valve DM type 2 (diabetes mellitus, type 2) 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22" Hyperlipidemia Hypertension Hypertensive urgency Surgical History H/O tubal ligation Family History Other Family history of atrial fibrillation Myocardial infarction Social History Smoking Status: Never smoker Hx Alcohol Use: No Hx Substance Use: No Preferred Language: Japanese Communication Ability: Effective Beliefs That Will Affect Care: None Current Living Situation: Spouse Other Information That Helps Us Care for You: No Feels Safe at Home: Yes Safety Concerns: Feels Safe At This Time Review of Systems Review of Systems: All systems reviewed & are unremarkable except as noted in HPI & below Physical Exam Physical Exam: Temp Pulse Resp BP Pulse Ox 37.1 C 81 18 143/84 H 93 11/19/20 16:20 11/19/20 16:20 11/19/20 16:20 11/19/20 16:20 11/19/20 16:20 Constitutional: WD/WN, vitals as above Respiratory: no respiratory distress and no labored breathing Auscultation: no crackles and no rales Mildly decreased breath sounds the bases bilaterally, specifically decreased breath sounds at the left base. Cardiovascular: RRR, no murmur, no edema Chest (Breasts): Additional Comments: Well-healing midline sternotomy incision, no drainage Gastrointestinal (Abdomen): normal bowel sounds, soft, nontender, no hepatosplenomegaly Neurologic: PERRL, EOMI, accommodation nl, no face palsy, no dysarthria Results & Data ([facility]) Vital Signs (Past 12 Hours) Vital Signs Temp Pulse Pulse Resp BP Pulse Ox 11/19/20 16:20 37.1 C 81 18 143/84 H 93 11/19/20 15:57 81 11/19/20 15:48 37.0 C 85 18 130/74 95 11/19/20 12:14 36.9 C 76 18 149/82 H 96 11/19/20 07:50 36.8 C 79 18 149/89 H 94 Laboratory Results Cardiac Enzymes 11/18/20 11/19/20 11/19/20 Range/Units 21:17 07:40 11:52 AST 13 L (15-37) U/L Troponin I 0.087 H* 0.074 H* 0.079 H* (0-0.045) ng/ml Coagulation 11/18/20 11/19/20 11/19/20 Range/Units 21:17 07:40 16:07 PT 10.1 (9.0-12.0) Seconds APTT 25.6 32.8 H 40.9 H (21.0-31.0) Seconds CBC 11/18/20 11/19/20 Range/Units 21:17 07:40 WBC 8.14 6.12 (4.8-10.8) K/uL RBC 4.06 L 3.98 L (4.2-5.4) M/uL Hgb 12.5 11.8 L (12.0-16.0) g/dL Hct 36.2 L 35.9 L (37-47) % Plt Count 272 254 (130-400) K/uL Neut # (Auto) 4.71 3.37 (1.4-6.5) K/uL Lymph # (Auto) 2.22 1.80 (1.2-3.4) K/uL [place] # (Auto) 0.99 H 0.66 H (0.11-0.59) K/uL Eos # (Auto) 0.18 0.24 (0-0.5) K/uL Baso # (Auto) 0.02 0.01 (0-0.2) K/uL Comprehensive Metabolic Panel 11/18/20 11/19/20 11/19/20 Range/Units 21:17 07:40 13:28 Sodium 134 L 136 136 (136-145) mmol/L Potassium 3.6 3.7 (3.5-5.1) mmol/L Chloride 98 102 101 (98-107) mmol/L Carbon Dioxide 26 29 27 (21-32) mmol/L BUN 15 13 13 (7-18) mg/dl Creatinine 0.90 0.67 0.64 (0.6-1.2) mg/dl Glucose 310 H* 228 H 268 H (70-99) mg/dl Calcium 8.9 9.0 9.1 (8.5-10.1) mg/dl AST 13 L (15-37) U/L ALT 9 L (12-78) U/L Alkaline Phosphatase 80 (45-117) U/L Total Protein 7.1 (6.4-8.2) gm/dl Albumin 3.4 (3.4-5.0) gm/dl Intake and Output 11/19/20 11/19/20 11/19/20 06:59 14:59 22:59 Intake Total 100 / 100 703.75 / 703.75 Balance 100 / 100 703.75 / 703.75 Intake: IV 100 / 100 603.75 / 603.75 HEPARIN SODIUM/DEXTROSE 25,000 103.75 / 103.75 units In 500 ml @ 900 UNITS/HR 18 mls/hr IV .Q24H ADEEL Rx#: [id number] MAGNESIUM SULFATE / D5W 1 gm In 100 / 100 100 ml @ 100 mls/hr IV NOW STA Rx#:[id number] Nss 500 ml @ 75 mls/hr IV . 500 / 500 Q6H40M ADEEL Rx#:[id number] Oral 100 / 100 Other: # Unmeasured Voids 2 5 Weight 81.4 kg Weight Measurement Method [facility] Findings Per radiology report, chest x-ray reveals small left and trace right pleural effusions with mild interstitial edema. Echocardiogram performed today and reviewed independently by the undersigned. No pericardial effusion, moderate left pleural effusion noted by echocardiogram criteria, normal bioprosthetic aortic valve function, severe concentric left ventricular hypertrophy, normal LVEF in the 65 to 69%. EKG tracing performed 11/18/2020 at 2032 hrs. revealed atrial fibrillation 135 bpm, no significant ST depression. Repeat EKG tracing this morning 11/19/2020 at 6:17 AM revealed sinus rhythm at 76 bpm with first-degree AV block.
[2020-11-19] MEDS ORDERED: WARFARIN SOD 5 MG TAB PO ONE (18:00)
[2020-11-19] MEDS ORDERED: PHARMACY GLYCEMIC MGMT CONSULT PRN (18:01)
--- NOTE | 2020-11-19 18:08 | Hospitalist Progress Note ---
Date of Service November 19, 2020 Assessment & Plan (1) Atrial fibrillation with rapid ventricular response: Patient is a 64 yr female who presents with rapid atrial fibrillation. Atrial fibrillation with rapid ventricular response Converted to sinus rhythm TSH normal ECHO: Severe concentric LVH. Abnormal septal motion consistent with postoperative state. EF 65 to 70%. Gradient is normal for this prosthetic aortic valve. Grade 2 diastolic dysfunction. Moderate left pleural effusion. No pericardial effusion. Continue amiodarone, metoprolol Continue IV heparin Started on Coumadin Monitor INR Appreciate Cardiology input Left Pleural Effusion Continue IV diuresis Monitor volume status H/O aortic stenosis of bicuspid aortic valve S/P aortic valve replacement with bioprosthetic valve on 11/13/2020 Continue home meds Mild elevation of troponin Likely Type II DE due to Afib RVR ECHO as above DM II HbA1c 8.8 Hold p.o. meds Insulin therapy while hospitalized Glycemic pharmacy consulted Monitor BGs Hyperlipidemia Continue statin DVT Px: IV heparin, Coumadin Code Status Full code Admission and Anticipated Discharge Date Admission Date: November 19, 2020 Subjective Patient is seen and examined at bedside Palpitations resolved Currently in sinus Denies chest pain, dizziness, shortness of breath, nausea, abdominal pain On IV heparin Review of Systems Review of Systems: All systems reviewed & are unremarkable except as noted in HPI & below Physical Exam Physical Exam: Physical Exam: Vitals signs as noted above General Appearance:Moderately built and nourished, no apparent distress Head: normocephalic, Atraumatic Eyes: normal inspection, EOMI Neck: supple, Trachea midline Respiratory/Chest: Decreased breath sounds at bases Cardiovascular: S1, S2, No murmur Abdomen/GI:Soft, Non tender, Bowel sounds present Extremities/Musculoskelatal:normal inspection, no edema Neurologic/Psych:AAOX3, grossly no focal neurological deficits Skin: normal color, warm, + midline sternotomy scar Results & Data Results & Data ([facility]) Vital Signs (Past 12 Hours) Vital Signs Temp Pulse Pulse Resp BP Pulse Ox 11/19/20 16:20 37.1 C 81 18 143/84 H 93 11/19/20 15:57 81 11/19/20 15:48 37.0 C 85 18 130/74 95 11/19/20 12:14 36.9 C 76 18 149/82 H 96 11/19/20 07:50 36.8 C 79 18 149/89 H 94 Laboratory Results Short CBC 11/18/20 11/19/20 Range/Units 21:17 07:40 WBC 8.14 6.12 (4.8-10.8) K/uL Hgb 12.5 11.8 L (12.0-16.0) g/dL Hct 36.2 L 35.9 L (37-47) % Plt Count 272 254 (130-400) K/uL BMP 11/18/20 11/19/20 11/19/20 21:17 07:40 13:28 Sodium 134 L 136 136 Potassium 3.6 3.7 Chloride 98 102 101 Carbon Dioxide 26 29 27 BUN 15 13 13 Creatinine 0.90 0.67 0.64 Glucose 310 H* 228 H 268 H Calcium 8.9 9.0 9.1 Cardiac Enzymes 11/18/20 11/19/20 11/19/20 Range/Units 21:17 07:40 11:52 Troponin I 0.087 H* 0.074 H* 0.079 H* (0-0.045) ng/ml Liver Function 11/18/20 Range/Units 21:17 Total Bilirubin 1.2 H (0.2-1) mg/dl AST 13 L (15-37) U/L ALT 9 L (12-78) U/L Alkaline Phosphatase 80 (45-117) U/L Albumin 3.4 (3.4-5.0) gm/dl Urine 11/18/20 Range/Units Unknown Urine Color Yellow Urine Appearance Clear (Clear) Urine pH 6.0 (4.5-7.5) Ur Specific [place] 1.016 (1.000-1.030) Urine Protein Negative (Negative) Urine Glucose (UA) 2+ H (Negative)
[2020-11-19] MEDS ORDERED: INSULIN GLARGINE SOLOSTAR 100 UNITS/ML 3 ML PEN SC ONE (20:00)
[2020-11-20] MEDS: INSULIN ASPART 100 UNITS/ML 3 ML PEN SC SCH ×6 (00:19→20:30)
[2020-11-20 01:17] LABS: Partial Thromboplastin Ratio 1.5; Partial Thromboplastin Time 39.9 Seconds (21.0-31.0)
[2020-11-20] MEDS: HEPARIN SODIUM/DEXTROSE 25,000 UNITS/500 ML BAG IV SCH (04:18)
[2020-11-20] MEDS ORDERED: METOPROLOL TARTRATE 1 MG/ML VIAL IV PRN (08:01)
[2020-11-20] MEDS: METOPROLOL TARTRATE 25 MG TAB PO SCH (08:04)
[2020-11-20] MEDS: AMIODARONE 200 MG TAB PO SCH ×2 (08:05→20:27)
[2020-11-20] MEDS: SPIRONOLACTONE 12.5 MG TAB PO SCH (08:05)
[2020-11-20] MEDS: FUROSEMIDE 40 MG in SYRINGE 0 ML IV SCH (08:06)
[2020-11-20 08:22] LABS: Hematocrit (blood only) 38.4 % (37-47); Hemoglobin 12.7 g/dL (12.0-16.0); Mean Corpuscular Hemoglobin 29.7 pg (25-34); Mean Corpuscular Hgb Conc 33.1 g/dL (32-36); Mean Corpuscular Volume 89.7 fL (80-100); Mean Platelet Volume 9.8 fL (7.4-10.4); Platelet Count 155 K/uL (130-400); RDW Coefficient of Variation 13.4 % (11.5-14.5); RDW Standard Deviation 43.8 fL (36.4-46.3); Red Blood Count 4.28 M/uL (4.2-5.4); White Blood Count 8.37 K/uL (4.8-10.8)
[2020-11-20] MEDS: DOCUSATE SODIUM 100 MG CAP PO SCH (08:22)
[2020-11-20 08:49] LABS: INR 1.2 (0.9-1.1); Partial Thromboplastin Ratio 1.8; Prothrombin Time 11.8 Seconds (9.0-12.0)
[2020-11-20 08:55] LABS: BUN Creatinine Ratio 17.8 (10-20); Calcium 9.6 mg/dl (8.5-10.1); Creatinine Clr Calc Pharmacy 74.4 ml/min; Est GFR (Non-African American) 80.2; Magnesium 2.3 mg/dl (1.8-2.4); Potassium 4.1 mmol/L (3.5-5.1)
[2020-11-20 09:10] LABS: Partial Thromboplastin Time 46.8 Seconds (21.0-31.0)
[2020-11-20] MEDS: CALCIUM CITRATE 950 MG TAB PO SCH (09:29)
[2020-11-20] MEDS: ASPIRIN 81 MG ECTAB PO SCH (09:29)
[2020-11-20] MEDS: FAMOTIDINE 20 MG TAB PO SCH (09:30)
[2020-11-20] MEDS: ATORVASTATIN 20 MG TAB PO SCH (09:30)
[2020-11-20] MEDS: POTASSIUM CHLORIDE CRTAB 20 MEQ TABCR PO SCH (09:30)
[2020-11-20] MEDS: VITAMIN B COMPLEX TAB PO SCH (09:31)
[2020-11-20] MEDS: CHOLECALCIFEROL 1,000 UNITS 25 MCG TAB PO SCH (10:40)
--- NOTE | 2020-11-20 12:49 | Pharmacy Report ---
Pharmacy Glycemic Short Note 2 - Date of Service November 20, 2020 - Glycemic Short BSG Results (Last 24 hours): 11/19/20 11/19/20 11/19/20 13:26 13:28 16:49 Glucose 268 H POC Glucose 265 H 309 H* 11/19/20 11/19/20 11/20/20 16:50 21:10 00:17 Glucose POC Glucose 344 H* 242 H 182 H 11/20/20 11/20/20 11/20/20 04:42 07:08 08:06 Glucose 223 H POC Glucose 204 H 199 H 11/20/20 10:58 Glucose POC Glucose 314 H* OUTPATIENT ANTIDIABETIC REGIMEN: * Metformin 1500mg PO QAM & 500mg PO QPM * Jardiance 25 mg PO Daily ASSESSMENT: * 64 year old female admitted with AFib, type 2 diabetic, uncontrolled, A1c 8.8% * Pt is maintained on oral antidiabetic agents as an outpatient * Oral agents are not recommended for inpatient use d/t drug interactions, changing PO intake, and difficulty titrating for acute hyper/hypoglycemia. ADA recommends re-initiating outpatient oral agents 1-2 days prior to discharge if/when appropriate if they were held on admission. * Will hold oral agents for admission and utilize SQ basal bolus insulin regimen which is the recommended regimen for inpatient glycemic control. * Initiated weight based insulin dosing yesterday for insulin hiram patient and titrating based on BSG trends. * Blood sugars rising throughout the day today, additional accucheck at 1400 for more insulin coverage today * Increase Basal and place on scale PLAN FOR INPATIENT GLYCEMIC CONTROL: * Hold outpatient oral diabetes medications * Basal insulin - increase * Lantus SQ BID * 10 units BSG < 110mg/ld * 20 units BSG 110-180mg/dl * 30 units BSG > 180mg/dl * Bolus insulin -tighten CF & CR * NovoLog per scale ACHS or Q6hrs while NPO * Goal Range: Low 120 mg/dL - High 150 mg/dL * Correction Factor: 15 mg/dL/unit * Nutritional / Prandial insulin per carb ratio of 1 unit per 5 grams CHO consumed PLAN FOR DISCHARGE: * A1c = 8.8 % on 11/19/20 Goal A1c = 7 % based on age and comorbidities A1c is between 8% and 10% would recommend dual combination therapy but p atient already on Jardiance + Metformin without achieving goal A1c Recommend beginning once daily basal insulin in addition to home regimen if patient willing to do self injections - dosing TBD Support Patient Self-Management oHealthy Lifestyle (diet, exercise, and smoking cessation) oDisease self-management (SMBG) oPrevention of complications (BP, Lipid goals, Immunizations) oConsider outpatient Diabetes Self-Management Education & Support
[2020-11-20] MEDS: INSULIN GLARGINE SOLOSTAR 100 UNITS/ML 3 ML PEN SC SCH ×2 (12:52→20:32)
[2020-11-20 13:46] LABS: Partial Thromboplastin Ratio 1.7; Partial Thromboplastin Time 44.6 Seconds (21.0-31.0)
[2020-11-20] MEDS ORDERED: POTASSIUM CHLORIDE CRTAB 20 MEQ TABCR PO STA (13:49)
[2020-11-20] MEDS ORDERED: INSULIN ASPART 100 UNITS/ML 3 ML PEN SC ONE (14:00)
[2020-11-20] MEDS ORDERED: FUROSEMIDE 40 MG in SYRINGE 0 ML IV ONE (14:00)
--- NOTE | 2020-11-20 14:08 | Cardiology Progress Note ---
Date of Service November 20, 2020 Assessment & Plan (1) Atrial fibrillation with rapid ventricular response: increase metoprolol to 50 mg BID.Continue amiodarone. Continue heparin infusion, continue coumadin load. (2) Volume overload: Continue lasix, extra dose of 40 mg IV this afternoon. Low dose aldactone. Supplement potassium. (3) S/P AVR: normal prosthetic function on echo. Admission and Anticipated Discharge Date Admission Date: November 19, 2020 Subjective Patient feeling improved until had recurrent AF this am from 7:46 until 10:27, then converted back to SR. Physical Exam Physical Exam: Temp Pulse Resp BP Pulse Ox 36.4 C L 74 19 116/73 97 11/20/20 10:54 11/20/20 11:03 11/20/20 10:54 11/20/20 10:54 11/20/20 10:54 Constitutional: WD/WN, vitals as above Respiratory: Mildly reduced BS bilaterally, left worse than R Cardiovascular: RRR, no murmur, no edema well healing sternotomy incision Gastrointestinal (Abdomen): normal bowel sounds, soft, nontender, no hepatosplenomegaly Neurologic: PERRL, EOMI, accommodation nl, no face palsy, no dysarthria Results & Data ([facility]) Vital Signs (Past 12 Hours) Vital Signs Temp Pulse Pulse Resp BP BP Pulse Ox 11/20/20 11:03 74 11/20/20 10:54 36.4 C L 76 19 116/73 97 11/20/20 07:34 36.6 C 76 18 129/81 92 11/20/20 04:50 36.9 C 75 20 122/73 92 Laboratory Results Coagulation 11/19/20 11/20/20 11/20/20 Range/Units 16:07 00:25 08:06 PT 11.8 (9.0-12.0) Seconds APTT 40.9 H 39.9 H 46.8 H* (21.0-31.0) Seconds 11/20/20 Range/Units 13:17 PT (9.0-12.0) Seconds APTT 44.6 H (21.0-31.0) Seconds CBC 11/20/20 Range/Units 08:06 WBC 8.37 (4.8-10.8) K/uL RBC 4.28 (4.2-5.4) M/uL Hgb 12.7 (12.0-16.0) g/dL Hct 38.4 (37-47) % Plt Count 155 (130-400) K/uL Comprehensive Metabolic Panel 11/20/20 Range/Units 08:06 Sodium 135 L (136-145) mmol/L Potassium 4.1 (3.5-5.1) mmol/L Chloride 98 (98-107) mmol/L Carbon Dioxide 30 (21-32) mmol/L BUN 14 (7-18) mg/dl Creatinine 0.79 (0.6-1.2) mg/dl Glucose 223 H (70-99) mg/dl Calcium 9.6 (8.5-10.1) mg/dl Intake and Output 11/19/20 11/20/20 11/20/20 22:59 06:59 14:59 Intake Total 191.15 / 1070.684 175.784 / 1070.684 58.333 / 58.333 Balance 191.15 / 1070.684 175.784 / 1070.684 58.333 / 58.333 Intake: IV 191.15 / 970.684 175.784 / 970.684 58.333 / 58.333 HEPARIN SODIUM/DEXTROSE 25,000 191.15 / 470.684 175.784 / 470.684 58.333 / 58.333 units In 500 ml @ 1,000 UNITS/ HR 20 mls/hr IV .Q24H [facility] Rx#: [id number] Other: # Unmeasured Voids 3 1 Weight 81 kg
[2020-11-20] MEDS ORDERED: INSULIN HUMAN REGULAR PER UNIT 4 UNITS in SYRINGE 3.96 ML IV ONE (14:15)
--- NOTE | 2020-11-20 15:15 | Electrocardiogram Report ---
Test Reason : Blood Pressure : / mmHG Vent. Rate : 075 BPM Atrial Rate : 075 BPM P-R Int : 210 ms QRS Dur : 090 ms QT Int : 416 ms P-R-T Axes : 034 -34 066 degrees QTc Int : 464 ms Sinus rhythm with 1st degree A-V block Left axis deviation Abnormal ECG When compared with ECG of 19-NOV-2020 06:17, No significant change was found Confirmed by Howard Elliott ([id number]) on 11/20/2020 3:15:19 PM Referred By: Traci Arzate Confirmed By:Howard Elliott
--- NOTE | 2020-11-20 15:20 | Hospitalist Progress Note ---
Date of Service November 20, 2020 Assessment & Plan (1) Atrial fibrillation with rapid ventricular response: Patient is a 64 yr female who presents with rapid atrial fibrillation. Atrial fibrillation with rapid ventricular response Converted to sinus rhythm TSH normal ECHO: Severe concentric LVH. Abnormal septal motion consistent with postoperative state. EF 65 to 70%. Gradient is normal for this prosthetic aortic valve. Grade 2 diastolic dysfunction. Moderate left pleural effusion. No pericardial effusion. Continue amiodarone, metoprolol Continue IV heparin Continue Coumadin Monitor INR:1.2 Appreciate Cardiology input Metoprolol increased to 50 mg twice daily Left Pleural Effusion Continue IV diuresis Monitor volume status Plan for repeat chest x-ray tomorrow H/O aortic stenosis of bicuspid aortic valve S/P aortic valve replacement with bioprosthetic valve on 11/13/2020 Continue home meds Mild elevation of troponin Likely Type II [place] due to Afib RVR ECHO as above DM II HbA1c 8.8 Hold p.o. meds Insulin therapy while hospitalized Glycemic pharmacy consulted Monitor BGs Hyperlipidemia Continue statin DVT Px: IV heparin, Coumadin Code Status Full code Admission and Anticipated Discharge Date Admission Date: November 19, 2020 Subjective Patient is seen and examined at bedside Had transient palpitations earlier today which resolved Denies chest pain, dyspnea, dizziness, nausea, abdominal pain Offers no other complaints Review of Systems Review of Systems: All systems reviewed & are unremarkable except as noted in HPI & below Physical Exam Physical Exam: Physical Exam: Vitals signs as noted above General Appearance:Moderately built and nourished, no apparent distress Head: normocephalic, Atraumatic Eyes: normal inspection, EOMI Neck: supple, Trachea midline Respiratory/Chest: Decreased breath sounds at bases Cardiovascular: Irregularly irregular, no murmur Abdomen/GI:Soft, Non tender, Bowel sounds present Extremities/Musculoskeletal:normal inspection, no edema Neurologic/Psych:AAOX3, grossly no focal neurological deficits Skin: normal color, warm, + midline sternotomy scar Results & Data Results & Data ([facility]) Vital Signs (Past 12 Hours) Vital Signs Temp Pulse Pulse Resp BP BP Pulse Ox 11/20/20 11:03 74 11/20/20 10:54 36.4 C L 76 19 116/73 97 11/20/20 07:34 36.6 C 76 18 129/81 92 11/20/20 04:50 36.9 C 75 20 122/73 92 Laboratory Results Short CBC 04/08/21 Range/Units 08:06 WBC 8.37 (4.8-10.8) K/uL Hgb 12.7 (12.0-16.0) g/dL Hct 38.4 (37-47) % Plt Count 155 (130-400) K/uL BMP 11/20/20 08:06 Sodium 135 L Potassium 4.1 Chloride 98 Carbon Dioxide 30 BUN 14 Creatinine 0.79 Glucose 223 H Calcium 9.6
[2020-11-20] MEDS ORDERED: WARFARIN SOD 5 MG TAB PO SCH (16:00)
--- NOTE | 2020-11-20 16:30 | Electrocardiogram Report ---
Test Reason : Blood Pressure : / mmHG Vent. Rate : 075 BPM Atrial Rate : 075 BPM P-R Int : 202 ms QRS Dur : 086 ms QT Int : 500 ms P-R-T Axes : 010 -30 089 degrees QTc Int : 559 ms Poor data quality, interpretation may be adversely affected Normal sinus rhythm Left axis deviation Long QTc Abnormal ECG When compared with ECG of 19-NOV-2020 06:17, QT has lengthened Confirmed by Howard Elliott ([id number]) on 11/20/2020 4:29:34 PM Referred By: Traci Arzate Confirmed By:Howard Elliott
[2020-11-20] MEDS: METOPROLOL TARTRATE 50 MG TAB PO SCH (20:27)
[2020-11-20 20:34] LABS: Partial Thromboplastin Ratio 1.8
[2020-11-21] MEDS: INSULIN ASPART 100 UNITS/ML 3 ML PEN SC SCH ×5 (00:20→16:48)
[2020-11-21] MEDS: HEPARIN SODIUM/DEXTROSE 25,000 UNITS/500 ML BAG IV SCH (02:53)
[2020-11-21] MEDS: ACETAMINOPHEN 325 MG TAB PO PRN (03:53)
[2020-11-21 06:59] LABS: Hematocrit (blood only) 35.4 % (37-47); Hemoglobin 11.6 g/dL (12.0-16.0); Mean Corpuscular Hemoglobin 29.2 pg (25-34); Mean Corpuscular Hgb Conc 32.8 g/dL (32-36); Mean Corpuscular Volume 89.2 fL (80-100); Mean Platelet Volume 9.8 fL (7.4-10.4); Platelet Count 124 K/uL (130-400); RDW Coefficient of Variation 13.4 % (11.5-14.5); RDW Standard Deviation 43.3 fL (36.4-46.3); Red Blood Count 3.97 M/uL (4.2-5.4); White Blood Count 8.71 K/uL (4.8-10.8)
[2020-11-21 07:25] LABS: INR 2.5 (0.9-1.1); Partial Thromboplastin Ratio 2.4; Prothrombin Time 23.9 Seconds (9.0-12.0)
[2020-11-21 07:27] LABS: Partial Thromboplastin Time 64.1 Seconds (21.0-31.0)
[2020-11-21 07:31] LABS: BUN Creatinine Ratio 21.5 (10-20); Calcium 9.3 mg/dl (8.5-10.1); Creatinine Clr Calc Pharmacy 70.8 ml/min; Est GFR (African American) 87.6; Est GFR (Non-African American) 75.6; Magnesium 2.1 mg/dl (1.8-2.4); Potassium 3.6 mmol/L (3.5-5.1)
--- NOTE | 2020-11-21 09:14 | XRay Report ---
TWO VIEW CHEST CLINICAL HISTORY: Congestive heart failure follow-up. FINDINGS: PA and lateral chest radiographs are compared to study dated 11/18/2020. The patient is statu s post midline sternotomy and aortic valve surgery. The heart is enlarged noting atherosclerotic calc ification of the thoracic aorta. Pulmonary vascular congestion has resolved. A trace left pleural eff usion persists with left basilar atelectasis. There is no pneumothorax. The skeletal structures are o steopenic. The bony thorax appears intact. IMPRESSION: 1. Cardiomegaly. Pulmonary vascular congestion has resolved. 2. There is a small residual left pleural effusion. ACT 112: Negative or not required by law. Electronically signed by: Chuy Gallagher M.D. 11/21/2020 9:13 AM
[2020-11-21] MEDS: FUROSEMIDE 40 MG in SYRINGE 0 ML IV SCH (09:15)
[2020-11-21] MEDS: CALCIUM CITRATE 950 MG TAB PO SCH (09:16)
[2020-11-21] MEDS: ASPIRIN 81 MG ECTAB PO SCH (09:16)
[2020-11-21] MEDS: ATORVASTATIN 20 MG TAB PO SCH (09:16)
[2020-11-21] MEDS: FAMOTIDINE 20 MG TAB PO SCH (09:16)
[2020-11-21] MEDS: AMIODARONE 200 MG TAB PO SCH (09:17)
[2020-11-21] MEDS: SPIRONOLACTONE 12.5 MG TAB PO SCH (09:17)
[2020-11-21] MEDS: VITAMIN B COMPLEX TAB PO SCH (09:17)
[2020-11-21] MEDS: POTASSIUM CHLORIDE CRTAB 20 MEQ TABCR PO SCH (09:17)
[2020-11-21] MEDS: CHOLECALCIFEROL 1,000 UNITS 25 MCG TAB PO SCH (09:17)
[2020-11-21] MEDS: METOPROLOL TARTRATE 50 MG TAB PO SCH (09:18)
[2020-11-21] MEDS: DOCUSATE SODIUM 100 MG CAP PO SCH (09:18)
[2020-11-21] MEDS: INSULIN GLARGINE SOLOSTAR 100 UNITS/ML 3 ML PEN SC SCH (09:20)
--- NOTE | 2020-11-21 12:02 | Cardiology Progress Note ---
Date of Service November 21, 2020 Assessment & Plan (1) Atrial fibrillation with rapid ventricular response: Metoprolol tartrate increased to 50 mg two times per day. Continue amiodarone 200 mg twice per day. INR 2.5. Stop heparin infusion, reduced warfarin to 1 mg daily. -needs to establish with [facility] at [facility]. (2) Volume overload: CXR improved. Clinically improved. Discharge on lasix 40 mg two times per day instead of daily. Spironolactone 12.5 mg daily also new. potassium chloride 20 meq two times per day. (3) S/P AVR: normal prosthetic function on echo. Stable for discharge on medications as outlined above if hospitalist service agreeable from a Diabetes standpoint. Keep PCP follow up visit as planned next week. Cardiology follow up within 2-[address] surgery follow up. Admission and Anticipated Discharge Date Admission Date: November 19, 2020 Subjective Patient seen in follow up of palpitations and shortness of breath. No additional AF since 1030 am on 11/20. SR in the 60s noted. Physical Exam Physical Exam: Temp Pulse Resp BP Pulse Ox 36.6 C 66 17 96/61 L 96 11/21/20 12:12 11/21/20 12:12 11/21/20 12:12 11/21/20 12:12 11/21/20 12:12 Constitutional: WD/WN, vitals as above Respiratory: Auscultation: no crackles and no rales mildly reduced BS at left base, impoved Cardiovascular: RRR, no murmur, no edema Chest (Breasts): Additional Comments: well healing midline incision Neurologic: PERRL, EOMI, accommodation nl, no face palsy, no dysarthria Results & Data ([facility]) Vital Signs (Past 12 Hours) Vital Signs Temp Pulse Pulse Resp BP Pulse Ox 11/21/20 11:13 68 11/21/20 07:47 36.6 C 73 18 115/71 94 11/21/20 03:47 36.6 C 73 18 121/76 95 11/21/20 01:48 69 Laboratory Results Coagulation 11/20/20 11/20/20 11/21/20 Range/Units 13:17 20:08 06:45 PT 23.9 H (9.0-12.0) Seconds APTT 44.6 H 47.0 H* 64.1 H* (21.0-31.0) Seconds CBC 11/21/20 Range/Units 06:45 WBC 8.71 (4.8-10.8) K/uL RBC 3.97 L (4.2-5.4) M/uL Hgb 11.6 L (12.0-16.0) g/dL Hct 35.4 L (37-47) % Plt Count 124 L (130-400) K/uL Comprehensive Metabolic Panel 11/21/20 Range/Units 06:45 Sodium 135 L (136-145) mmol/L Potassium 3.6 (3.5-5.1) mmol/L Chloride 99 (98-107) mmol/L Carbon Dioxide 29 (21-32) mmol/L BUN 18 (7-18) mg/dl Creatinine 0.83 (0.6-1.2) mg/dl Glucose 200 H (70-99) mg/dl Calcium 9.3 (8.5-10.1) mg/dl Intake and Output 11/20/20 11/21/20 11/21/20 22:59 06:59 14:59 Intake Total 158.9 / 564.416 208.85 / 564.416 376.85 / 376.85 Balance 158.9 / 564.416 208.85 / 564.416 376.85 / 376.85 Intake: IV 158.9 / 464.416 108.85 / 464.416 136.85 / 136.85 HEPARIN SODIUM/DEXTROSE 25,000 158.9 / 464.416 108.85 / 464.416 136.85 / 136.85 units In 500 ml @ 1,050 UNITS/ HR 21 mls/hr IV .[id number] [facility] Rx #:[id number] Oral 100 / 100 240 / 240 Other: # Unmeasured Voids 3 3 1 Weight 80.9 kg Weight Measurement Method Standing Scale
--- NOTE | 2020-11-21 13:42 | Hospitalist Progress Note ---
Date of Service November 21, 2020 Assessment & Plan (1) Atrial fibrillation with rapid ventricular response: Patient is a 64 yr female who presents with rapid atrial fibrillation. Atrial fibrillation with rapid ventricular response Converted to sinus rhythm TSH normal ECHO: Severe concentric LVH. Abnormal septal motion consistent with postoperative state. EF 65 to 70%. Gradient is normal for this prosthetic aortic valve. Grade 2 diastolic dysfunction. Moderate left pleural effusion. No pericardial effusion. Continue amiodarone 200 mg twice daily, metoprolol 50 mg twice daily IV heparin discontinued Continue Coumadin--decrease to 1mg today Monitor INR:1.2>2.5 Appreciate Cardiology input Follow-up with cardiology, Coumadin clinic upon discharge Left Pleural Effusion Received IV lasix CXR improved Monitor volume status Plan to discharge on Lasix 40 mg twice daily Also started on spironolactone 12.5 mg daily We will give potassium chloride 20 mg twice daily H/O aortic stenosis of bicuspid aortic valve S/P aortic valve replacement with bioprosthetic valve on 11/13/2020 Continue home meds Has follow-up appointment with CT surgery Mild elevation of troponin Likely Type II [place] due to Afib RVR ECHO as above DM II HbA1c 8.8 Hold p.o. meds Insulin therapy while hospitalized Glycemic pharmacy consulted Monitor BGs Plan to discharge on Lantus 40 units daily Hyperlipidemia Continue statin DVT Px: Coumadin Code Status Full code Admission and Anticipated Discharge Date Admission Date: November 19, 2020 Subjective Patient is seen and examined at bedside States feeling well No recurrence of palpitation Discussed with cardiology today Currently in sinus Denies chest pain, dyspnea, dizziness, nausea, abdominal pain Review of Systems Review of Systems: All systems reviewed & are unremarkable except as noted in HPI & below Physical Exam Physical Exam: Physical Exam: Vitals signs as noted above General Appearance:Moderately built and nourished, no apparent distress Head: normocephalic, Atraumatic Eyes: normal inspection, EOMI Neck: supple, Trachea midline Respiratory/Chest: Decreased breath sounds at bases, CTA Cardiovascular: S1, S2, no murmur Abdomen/GI:Soft, Non tender, Bowel sounds present Extremities/Musculoskeletal:normal inspection, no edema Neurologic/Psych:AAOX3, grossly no focal neurological deficits Skin: normal color, warm, + midline sternotomy scar Results & Data Results & Data ([facility]) Vital Signs (Past 12 Hours) Vital Signs Temp Pulse Pulse Resp BP Pulse Ox 11/21/20 12:12 36.6 C 66 17 96/61 L 96 11/21/20 11:13 68 11/21/20 07:47 36.6 C 73 18 115/71 94 11/21/20 03:47 36.6 C 73 18 121/76 95 11/21/20 01:48 69 Laboratory Results Short CBC 11/21/20 Range/Units 06:45 WBC 8.71 (4.8-10.8) K/uL Hgb 11.6 L (12.0-16.0) g/dL Hct 35.4 L (37-47) % Plt Count 124 L (130-400) K/uL BMP 11/21/20 06:45 Sodium 135 L Potassium 3.6 Chloride 99 Carbon Dioxide 29 BUN 18 Creatinine 0.83 Glucose 200 H Calcium 9.3
--- NOTE | 2020-11-21 14:00 | Discharge Summary ---
Date of Service November 21, 2020 Admission HPI Per Admitting Provider CHIEF COMPLAINT: Palpitations. HISTORY OF PRESENT ILLNESS: A 64-year-old female with past medical history significant for type 2 diabetes, hyperlipidemia, chronic rhinitis, bicuspid aortic valve critical aortic stenosis, recent bioprosthetic aortic valve replacement, hypertension, history of PVCs, vitamin D deficiency, obesity. The patient presents with palpitations. The patient was admitted to [facility] on 11/13/2020 for valve surgery for critical aortic stenosis on bicuspid aortic valve. The patient underwent aortic valve replacement with Inspiris valve on 11/13/2020. On the second day of postop, she developed AFib for some time. She was treated with amiodarone and she did okay and there was a question of pancreatic mass and she had a CT of pancreas protocol and no mass was identified and the patient was discharged home on 11/18/2020 around afternoon. The patient says in the evening, she was watching TV and suddenly felt heart palpitations, no chest pain, no shortness of breath, no other symptoms, and she came here and found to be in rapid AFib in like 120-130s. After 5mg iv Lopressor, she converted into sinus rhythm. Resting comfortably. Denies any headache. No blurred vision, no dizziness, no earache, no runny nose, no sore throat. Appetite is okay. No difficulty swallowing. No chest pain, no nausea, no vomiting, no abdominal pain, no shortness of breath. Normal bowel and bladder movements. No blood in the stools or black stools. No hematuria. No rash. Ambulating okay. Her son is visiting from [place], who works as a nurse in the ER . Admission Exam Per Admitting Provider PHYSICAL EXAMINATION: GENERAL: The patient is of moderate build, not in acute distress. VITAL SIGNS: Temperature 36.4, pulse when she came in was in the 120s, currently 98, respiratory rate 17, blood pressure 130/88, oxygen 94% on room air. HEENT: Pupils equal, round, reactive to light. Oral mucosa moist. NECK: No JVD, no neck masses. CARDIOVASCULAR: S1, S2 heard, regular rate and rhythm, no murmur, no gallop. Surgical scar clean. RESPIRATORY SYSTEM: Normal AP diameter. No accessory muscle use. No wheezing, no crackles. ABDOMEN: Soft, bowel sounds present, nontender. No distention. CENTRAL NERVOUS SYSTEM: Cranial nerves II-XII grossly intact. Nonfocal. EXTREMITIES: No edema, no erythema. Principal Diagnosis Atrial fibrillation with rapid ventricular response Volume overload Uncontrolled diabetes mellitus Discharge Data Allergies Allergy/AdvReac Type Severity Reaction Status Date / Time lisinopril Allergy Severe Edema Verified 11/18/20 21:33 face, lips, tongue. Consultations 11/18/20 23:20 ED Decision to Admit Stat 11/19/20 08:00 Consult Cardiology Routine Procedures Performed ECHO: Severe concentric LVH. Abnormal septal motion consistent with postoperative state. EF 65 to 70%. Gradient is normal for this prosthetic aortic valve. Grade 2 diastolic dysfunction. Moderate left pleural effusion. No pericardial effusion. CXR: 1. Cardiomegaly. Pulmonary vascular congestion has resolved. 2. There is a small residual left pleural effusion. CT Head: No acute intracranial findings Ordered Studies 11/18/20 22:35 US point of care ultrasound Stat 11/19/20 12:11 CT head/brain wo con Stat Hospital Course (1) Atrial fibrillation with rapid ventricular response: Patient is a 64 yr female who presents with rapid atrial fibrillation. Atrial fibrillation with rapid ventricular response Converted to sinus rhythm TSH normal ECHO: Severe concentric LVH. Abnormal septal motion consistent with postoperative state. EF 65 to 70%. Gradient is normal for this prosthetic aortic valve. Grade 2 diastolic dysfunction. Moderate left pleural effusion. No pericardial effusion. Continue amiodarone 200 mg twice daily, metoprolol 50 mg twice daily IV heparin discontinued Continue Coumadin--decrease to 1mg today Monitor INR:1.2>2.5 Appreciate Cardiology input Follow-up with cardiology, Coumadin clinic upon discharge Left Pleural Effusion Received IV lasix CXR improved Monitor volume status Plan to discharge on Lasix 40 mg twice daily Also started on spironolactone 12.5 mg daily We will give potassium chloride 20 mg twice daily H/O aortic stenosis of bicuspid aortic valve S/P aortic valve replacement with bioprosthetic valve on 11/13/2020 Continue home meds Has follow-up appointment with CT surgery Mild elevation of troponin Likely Type II [place] due to Afib RVR ECHO as above DM II HbA1c 8.8 Hold p.o. meds Insulin therapy while hospitalized Glycemic pharmacy consulted Monitor BGs Plan to discharge on Lantus 40 units daily Hyperlipidemia Continue statin DVT Px: Coumadin Code Status Full code Total Time Total Time Spent Total Time Spent (In Minutes): 45 minutes Total Time Includes: Examination of the Patient, Discharge Planning, Medication Reconciliation, Communication With Other Providers and Other Discharge Plan Discharge Items Patient Disposition: Home - Home Health Services Reason For Visit: PALPITATIONS Discharge Diagnosis: Atrial fibrillation with rapid ventricular response Volume overload Uncontrolled diabetes mellitus Activity: Per Instructions section Sexual Activity: Wait until after follow-up appointment Non-emergency contact: Primary Care Provider, Surgeon and Drama Director Call non-emergency contact if: you have any medication questions, your symptoms worsen, your pain is not controlled, your pain is concerning for you and you have a fever Follow-up/Referrals: Traci Arzate MD [Primary Care Provider] - Diet: Carb Consistent or DM2 and Heart Healthy Ambulatory Orders: Prothrombin Time INR (Routine) Timeframe: 3 Days Location: Determined by Patient Ordered By: Iván Genao Attending Provider Instructions: Follow-up with your primary care physician Dr. Arzate on November 24, 2020 at 3 PM Follow-up with your registered account administrator Dr. Collins on December 10, 2020 at 9 AM Follow-up with your CT surgeon as scheduled Follow-up with Coumadin clinic for monitoring your PT/INR and adjustment of Coumadin dosing. Start taking Lantus 40 units daily for better control of your blood glucose levels. Discuss with your glycemic pharmacist for further adjustment of your insulin dosage. Take Coumadin 1 mg on 11/21/20, 11/22/20, 11/23/20 and get Blood test (PT/INR) on 11/24/20 and follow-up with Coumadin clinic on 11/24/20 for further adjustment of your Coumadin dosing as required. Target PT/INR is between 2.0-3.0. Hold taking Coumadin if you notice any bleeding. Discuss with your physician for further instructions. Seek immediate medical attention if your symptoms reoccur or worsen Pending Studies at Discharge: No Stand-Alone Forms: My [employer], Smoking Cessation Medications and DC Order Prescriptions: New warfarin [Jantoven] 1 mg Tablet 1 mg PO UD Qty: 60 RF: 0 metoprolol tartrate 50 mg Tablet 50 mg PO BID Qty: 60 RF: 1 spironolactone 25 mg Tablet 12.5 mg PO DAILY Qty: 30 RF: 1 potassium chloride [Klor-Con M20] 20 mEq Tablet,Er Particles/Crystals 20 meq PO BID Qty: 60 RF: 0 Lantus Solostar U-100 Insulin 100 unit/mL (3 mL) Insulin Pen 40 unit SC QAM Qty: 6 RF: 0 (DME) Easy Touch Hypodermic Needle 32 gauge x 5/16" needle See Rx Instructions .ROUTE .MEDSUPPLY Qty: 100 RF: 0 Continued atorvastatin 20 mg Tablet 20 mg PO QAM RF: 0 coQ10 (ubiquinol) 200 mg Capsule 200 mg PO DAILY RF: 0 loratadine [Claritin] 10 mg Tablet 10 mg PO DAILY PRN (Reason: Congestion) RF: 0 vitamin B complex Tablet 1 tab PO DAILY RF: 0 metformin 500 mg Tablet See Rx Instructions .ROUTE .COMPLEX RF: 0 amiodarone 200 mg Tablet 200 mg PO BID RF: 0 famotidine 20 mg Tablet 20 mg PO DAILY RF: 0 nystatin 100,000 unit/gram Cream 1 applic TOPICAL BID PRN (Reason: Skin Irritation) RF: 0 docusate sodium 100 mg Capsule 100 mg PO DAILY RF: 0 aspirin 81 mg Tablet,Chewable 81 mg PO DAILY RF: 0 oxycodone 5 mg Tablet 5 mg PO Q4H PRN (Reason: Moderate Pain (Scale Score 5-6)) RF: 0 calcium citrate 200 mg (950 mg) Tablet 200 mg PO DAILY RF: 0 cholecalciferol (vitamin D3) [Vitamin D3] 125 mcg (5,000 unit) Tablet 125 mcg PO DAILY RF: 0 Jardiance 25 mg Tablet 25 mg PO DAILY RF: 0 Changed furosemide [Lasix] 40 mg Tablet 40 mg PO BID Qty: 60 RF: 0 Discontinued potassium chloride 10 mEq Capsule, Extended Release 20 meq PO DAILY RF: 0 glipizide 10 mg Tablet Extended Release 24hr 20 mg PO DAILY RF: 0 metoprolol tartrate 25 mg Tablet 25 mg PO BID RF: 0 Discharge Orders: Discharge Order (Routine); Ordered 11/21/20 Ordered By: Iván Archer/Other Patient Handouts: Diabetes and Heart Disease, Long-Term Complications of Diabetes, Insulin Injection Steps Admission Data Admit Date/Time: 11/19/20 00:57 Attending Provider: Iván Ambrosio Admit Provider: Daniel Schwab Primary Care Provider: Traci Arzate Other Providers: Daniel Schwab ; Virgil Collins Other Interventions: Discharge Summary Assessment (RN) Last Done: 11/21/20 14:49
[2020-11-21] MEDS ORDERED: WARFARIN SOD 1 MG TAB PO SCH (16:00)
--- NOTE | 2020-11-21 16:30 | Electrocardiogram Report ---
Test Reason : Blood Pressure : / mmHG Vent. Rate : 066 BPM Atrial Rate : 066 BPM P-R Int : 220 ms QRS Dur : 088 ms QT Int : 446 ms P-R-T Axes : 040 -35 084 degrees QTc Int : 467 ms Sinus rhythm with 1st degree A-V block Left axis deviation Abnormal ECG When compared with ECG of 20-NOV-2020 05:22, No significant change was found Confirmed by Howard Elliott ([id number]) on 11/21/2020 4:29:52 PM Referred By: Traci Arzate Confirmed By:Howard Elliott
== END 2020-11-21 17:17 | disposition home health service (06) | DRG 281 ==
LOC: ED 20:20 → SUATTDRO 11-19 00:57 → EDINP 11-19 00:57 → 2S 11-19 15:48